=== PATIENT | male | born 1985 | race Asian ===

== ENCOUNTER 2017-07-23 00:32 | Inpatient (IN) | payer BC ==
--- NOTE | 2017-07-23 00:41 | PDOC ---
History of Present Illness - General Stated Complaint: VOMITING Time Seen by Provider: 07/23/17 00:40 - History of Present Illness Initial Comments: 31 year old male with history of inguinal abscesses (never requiring drainage) presenting with fevers, chills, nausea, vomiting, and pain in his left buttox for the past few days. His symptoms began with pain in his left buttocks three days ago. He was taking hot showers and cleaning himself regularly but that did not help bring this abscess to a head. He says that the skin is intact and there is no obvious source of drainage. 07/23/17 01:14 Past History - Past Medical History Allergies/Adverse Reactions: Allergies Allergy/AdvReac Type Severity Reaction Status Date / Time No Known Allergies Allergy Verified 07/23/17 00:46 Home Medications: Ambulatory Orders NK [No Known Home Medication] 10/07/15 - Suicide/Smoking/Psychosocial Hx Smoking Status: No Smoking History: Current every day smoker Number of Cigarettes Smoked Daily: 6 Hx Alcohol Use: No Drug/Substance Use Hx: No Review of Systems - Review of Systems Constitutional: Yes: Chills, Fever. No: Diaphoresis HEENTM: No: Blurred Vision, Tearing Respiratory: No: Cough, Shortness of Breath Cardiac (ROS): No: Chest Pain, Edema ABD/GI: Yes: Diarrhea, Nausea, Vomiting. No: Constipated : No: Dysuria, Discharge, Frequency Integumentary: Yes: Change in Color, Erythema, Lesions *Physical Exam - Physical Exam General Appearance: Yes: Nourished, Appropriately Dressed. No: Apparent Distress HEENT: positive: EOMI, EWA, Normal ENT Inspection Neck: negative: Tender ED Treatment Course - LABORATORY CBC & Chemistry Diagram: 07/23/17 01:47 07/23/17 01:47 Medical Decision Making - Medical Decision Making 31 year old male presenting with left gluteal lesion, nausea, vomiting, and fevers. Patient presented tachy, febrile, and with a sugar of 435. CT did not reveal any fluid collection in the gluteal region of concern. Will admit patient for cellulites and hyperglycemia treatment. Patient given 5 insulin and 1 L NS with drop of sugar from 440 to 335. Patient asymptomatic. Will get Ekg, UA, serum acetone, additional L NS, Blood cultures, and will give one dose clindamycin IV. 07/23/17 05:58 *DC/Admit/Observation/Transfer Diagnosis at time of Disposition: Diabetes, Cellulitis - Discharge Dispostion Condition at time of disposition: Improved Admit: Yes
--- NOTE | 2017-07-23 01:56 | PDOC ---
Attending Attestation - Resident Resident Name: Ernestina Ruiz - ED Attending Attestation I have performed the following: I have examined & evaluated the patient, The case was reviewed & discussed with the resident, I agree w/resident's findings & plan, Exceptions are as noted - HPI HPI: 07/23/17 01:52 31 M with no PMH presents to ER with pain and swelling to his perineal region. Pt reports h/o abscesses in the past that have resolved with warm compresses. He states that he has had subjective fevers and chills but has not measured any temps. Denies any pain in his scrotum. Denies pain on defecation. - Physicial Exam PE: 07/23/17 01:54 "GENERAL: Awake, alert, and fully oriented, in no acute distress HEAD: No signs of trauma EYES: PERRLA, EOMI, sclera anicteric, conjunctiva clear ENT: Auricles normal inspection, hearing grossly normal, nares patent, oropharynx clear without exudates. Moist mucosa NECK: Nontender, no stepoffs, Normal ROM, supple, no lymphadenopathy, JVD, or masses LUNGS: Breath sounds equal, clear to auscultation bilaterally. No wheezes, and no crackles HEART: Regular rate and rhythm, normal S1 and S2, no murmurs, rubs or gallops ABDOMEN: Soft, nontender, normoactive bowel sounds. No guarding, no rebound. No masses : Erythema and induration to R gluteal fold and perineal region, no drainage, no fluctuance, no obvious involvement of scrotum EXTREMITIES: Normal range of motion, no edema. No clubbing or cyanosis. No cords, erythema, or tenderness NEUROLOGICAL: Cranial nerves II through XII intact. 5/5 strength and sensation in all extremities, Normal speech, normal gait SKIN: Warm, Dry, normal turgor, no rashes or lesions noted. " - Medical Decision Making 07/23/17 01:55 31 M with cellulitis of perineum and likely early abscess. Bedside US does not reveal any drainable pockets of pus. Pt does not have any scrotal pain, and infection does not extend to scrotum, making roslyn's unlikely. - CT pelvis w/ IV contrast to r/o perirectal abscess - Labs - Abx
[2017-07-23 02:06] LABS: BASOPHIL 0.7 % (0-2.0); EOSINOPHIL 0.4 % (0-4.5); MCHC 34.7 g/dl (32.0-35.9); MEAN CELL VOLUME 83.5 fl (80-96); MEAN PLT VOLUME 9.6 fl (7.5-11.1); NEUTROPHILS 77.7 % (42.8-82.8); PLATELET COUNT 208 K/MM3 (134-434); RDW 12.5 % (11.9-15.9); WHITE BLOOD COUNT 16.3 K/mm3 (4.0-10.0)
[2017-07-23 02:33] LABS: ALBUMIN 3.7 g/dl (3.4-5.0); ALK PHOS 88 U/L (45-117); ANION GAP 12 (8-16); BILIRUBIN,TOTAL 0.8 mg/dL (0.2-1.0); CALCIUM 8.3 mg/dL (8.5-10.1); CO2 25 mmol/L (21-32); CREATININE 1.1 mg/dL (0.7-1.3); TOT PROT 7.2 g/dl (6.4-8.2)
[2017-07-23 02:34] LABS: SGOT/AST 20 U/L (15-37); SGPT/ALT 49 U/L (12-78)
[2017-07-23 02:36] LABS: GLUCOSE,RANDOM 445 mg/dL (74-106)
[2017-07-23] MEDS ORDERED: SODIUM CHLORIDE 1,000 ML IV STA ×2 (02:38→06:54)
[2017-07-23] MEDS ORDERED: POTASSIUM CHLORIDE TABS 20 MEQ TABLET.ER (FP) PO ONE ×2 (02:42→04:28)
[2017-07-23] MEDS ORDERED: INSULIN REGULAR HUMAN 100 UNITS/ML *VIAL IVPUSH ONE (02:42)
[2017-07-23] MEDS ORDERED: CLINDAMYCIN 600MG PREMIX IVPB 50 ML IVPB ONE ×2 (05:50→06:47)
[2017-07-23] MEDS ORDERED: SODIUM CHLORIDE 1,000 ML IV SCH (06:00)
--- NOTE | 2017-07-23 06:54 | HP ---
CHIEF COMPLAINT: left buttock abscess PCP: In [place] HISTORY OF PRESENT ILLNESS: This is a 31 year old male with no significant past medical history who presented to the ED with nausea, vomiting, fever, chills since last night and left buttock pain x 3 days. Pt reports that over the course of the past year he has been periodically getting "bumps" in his groin area that resolve with warm compresses. He attempted same to his buttock without relief. He denies any history of DM or elevated blood glucose but reports that he has been "stress eating." ER course was notable for: (1) glucose 445 (2) CRP 4.9 (3) CT with cellulitis, no free air Recent Travel: pt denies PAST MEDICAL HISTORY: asthma as a child PAST SURGICAL HISTORY: cyst removed from back as a child Social History: Smokin/4ppd Alcohol: occ Drugs: pt denies Family History: mother alive and well father with HTN uncles and aunts both sides with DM brother alive and well Allergies No Known Allergies Allergy (Verified 07/23/17 00:46) HOME MEDICATIONS: 3 Medication Instructions Recorded NK [No Known Home Medication] 10/07/15 REVIEW OF SYSTEMS CONSTITUTIONAL: Present: fever, chills Absent: diaphoresis, generalized weakness, malaise, loss of appetite, weight change HEENT: Absent: rhinorrhea, nasal congestion, throat pain, throat swelling, difficulty swallowing, mouth swelling, ear pain, eye pain, visual changes CARDIOVASCULAR: Absent: chest pain, syncope, palpitations, irregular heart rate, lightheadedness , peripheral edema RESPIRATORY: Absent: cough, shortness of breath, dyspnea with exertion, orthopnea, wheezing, stridor, hemoptysis GASTROINTESTINAL: Present: nausea, vomiting Absent: abdominal pain, abdominal distension, diarrhea, constipation, melena, hematochezia GENITOURINARY: Absent: dysuria, frequency, urgency, hesitancy, hematuria, flank pain, genital pain MUSCULOSKELETAL: Absent: myalgia, arthralgia, joint swelling, back pain, neck pain SKIN: Absent: rash, itching, pallor HEMATOLOGIC/IMMUNOLOGIC: Absent: easy bleeding, easy bruising, lymphadenopathy, frequent infections ENDOCRINE: Absent: unexplained weight gain, unexplained weight loss, heat intolerance, cold intolerance NEUROLOGIC: Absent: headache, focal weakness or paresthesias, dizziness, unsteady gait, seizure, mental status changes, bladder or bowel incontinence PSYCHIATRIC: Absent: anxiety, depression, suicidal or homicidal ideation, hallucinations. PHYSICAL EXAMINATION Vital Signs - 24 hr 3 07/23/17 06:13 Pulse Rate [ 112 H Right Apical] Respiratory 18 Rate Blood Pressure 127/78 [Right Arm] O2 Sat by Pulse 98 Oximetry (%) GENERAL: Awake, alert, and fully oriented, in no acute distress. HEAD: Normal with no signs of trauma. EYES: Pupils equal, round and reactive to light, extraocular movements intact, sclera anicteric, conjunctiva clear. No lid lag. EARS, NOSE, THROAT: Ears normal, nares patent, oropharynx clear without exudates. Moist mucous membranes. NECK: Normal range of motion, supple without lymphadenopathy, JVD, or masses. LUNGS: Breath sounds equal, clear to auscultation bilaterally. No wheezes, and no crackles. No accessory muscle use. HEART: Regular rate and rhythm, normal S1 and S2 without murmur, rub or gallop. ABDOMEN: Soft, nontender, not distended, normoactive bowel sounds, no guarding, no rebound, no masses. No hepatomegaly or splenomegaly. MUSCULOSKELETAL: Normal range of motion at all joints. No bony deformities or tenderness. No CVA tenderness. UPPER EXTREMITIES: 2+ pulses, warm, well-perfused. No cyanosis. No clubbing. No peripheral edema. LOWER EXTREMITIES: 2+ pulses, warm, well-perfused. No calf tenderness. No peripheral edema. NEUROLOGICAL: Cranial nerves II-XII intact. Normal speech. Normal gait. PSYCHIATRIC: Cooperative. Good eye contact. Appropriate mood and affect. SKIN: Warm, dry, normal turgor, no rashes noted, normal capillary refill. Indurated, erythematous area left inner buttock/perianal area non fluctuant. Approx 7cm x 4cm Laboratory Results - last 24 hr 3 07/23/17 07/23/17 07/23/17 07/23/17 01:47 01:47 01:47 06:08 WBC 16.3 H D RBC 4.67 Hgb 13.6 Hct 39.0 MCV 83.5 MCH 29.0 MCHC 34.7 RDW 12.5 Plt Count 208 D MPV 9.6 Neutrophils % 77.7 D Lymphocytes % 14.0 D Monocytes % 7.2 Eosinophils % 0.4 Basophils % 0.7 Sodium 131 L Potassium 3.6 Chloride 94 L D Carbon Dioxide 25 Anion Gap 12 BUN 13 D Creatinine 1.1 D Creat Clearance w eGFR > 60 Random Glucose 445 H* D Lactic Acid 2.2 H* Calcium 8.3 L Total Bilirubin 0.8 D AST 20 D ALT 49 D Alkaline Phosphatase 88 D C-Reactive Protein 4.9 H Total Protein 7.2 Albumin 3.7 Lipase 202 ASSESSMENT/PLAN: 31yM with PMH asthma as a child presented to the ED with left buttock abscess. He is being admitted for further treatment. Buttock/perianal abscess with severe sepsis - clindamycin, levaquin, flagyl x 1 to cover for MRSA and gram negative - surgical consult - NS 1L bolus ordered then 125cc/hr Diabetes - new onset - novolog sliding scale for now - A1C ordered DVT PPX - age less than 50, fully ambulatory, defer heparin for now. FEN - NS @ 125cc/hr after bolus - BMP @ 9am - NPO for now until surgical consult Dispo: Pt currently requires inpatient management of his emergent condition. Visit type - Emergency Visit Emergency Visit: Yes ED Registration Date: 07/23/17 Care time: The patient presented to the Emergency Department on the above date and was hospitalized for further evaluation of their emergent condition. - New Patient This patient is new to me today: Yes Date on this admission: 07/23/17 - Critical Care Critical Care patient: No
[2017-07-23] MEDS ORDERED: INSULIN SLIDING SCALE (NOVOLOG) 1 VIAL SQ SCH ×3 (07:00→22:00)
[2017-07-23] MEDS: INSULIN SLIDING SCALE (NOVOLOG) 1 VIAL SQ SCH ×4 (07:01→17:44)
[2017-07-23] MEDS ORDERED: METRONIDAZOLE 500 MG PREMIXED 100 ML IVPB ONE (07:43)
[2017-07-23] MEDS ORDERED: LEVOFLOXACIN 500 MG IVPB 100 ML IVPB ONE (07:43)
--- NOTE | 2017-07-23 09:11 | EKG ---
Test Reason : Blood Pressure : / mmHG Vent. Rate : 112 BPM Atrial Rate : 112 BPM P-R Int : 150 ms QRS Dur : 090 ms QT Int : 328 ms P-R-T Axes : 053 028 025 degrees QTc Int : 447 ms SINUS TACHYCARDIA LEFT ATRIAL ENLARGEMENT Confirmed by KEVIN BRO MD ([id number]) on 07/23/2017 9:10:58 AM Referred By: Confirmed By:KEVIN BRO MD
--- NOTE | 2017-07-23 09:57 | CONSULT ---
- Consultation REQUESTING PROVIDER: Nii AVIAN KEEPER CONSULT REQUEST: We have been asked to surgically evaluate this patient for an ABSSSI of the left medial buttock PCP:Blanca Bales HISTORY OF PRESENT ILLNESS: Progressive pain and swelling of the left medial buttock; NOC PMHx: none known PSHx: none Home Medications Medication Instructions Recorded NK [No Known Home Medication] 10/07/15 Allergies Allergy/AdvReac Type Severity Reaction Status Date / Time No Known Allergies Allergy Verified 07/23/17 00:46 PHYSICAL EXAM: GENERAL: Awake, alert, and fully oriented, in no acute distress. HEAD: Normal with no signs of trauma. EYES:sclera anicteric, conjunctiva clear. NECK: Normal ROM, supple without lymphadenopathy, JVD, or masses. ABDOMEN: Soft, nontender, not distended, normoactive bowel sounds, no guarding, no rebound, no masses. No organomegaly. Striae. MUSCULOSKELETAL: Normal ROM at all joints. No bony deformities or tenderness. No CVA tenderness. UPPER EXTREMITIES: 2+ pulses, warm, well-perfused. No cyanosis. Cap refill <2 seconds. No peripheral edema. LOWER EXTREMITIES: 2+ pulses, warm, well-perfused. No calf tenderness. No peripheral edema. NEUROLOGICAL: Normal speech, gait not observed. PSYCH: Cooperative. Good eye contact. Appropriate mood and affect. SKIN: Warm, dry, normal turgor, no rashes or lesions noted. STS left medial upper buttock; no fluctuance; there is ttp. Vital Signs Temperature 99.4 F 07/23/17 09:19 Pulse Rate 100 H 07/23/17 09:19 Respiratory Rate 18 07/23/17 09:19 Blood Pressure 135/69 07/23/17 09:19 O2 Sat by Pulse Oximetry (%) 98 07/23/17 06:13 Lab Results WBC 16.3 K/mm3 (4.0-10.0) H D 07/23/17 01:47 RBC 4.67 M/mm3 (4.00-5.60) 07/23/17 01:47 Hgb 13.6 GM/dL (11.7-16.9) 07/23/17 01:47 Hct 39.0 % (35.4-49) 07/23/17 01:47 MCV 83.5 fl (80-96) 07/23/17 01:47 MCHC 34.7 g/dl (32.0-35.9) 07/23/17 01:47 RDW 12.5 % (11.9-15.9) 07/23/17 01:47 Plt Count 208 K/MM3 (134-434) D 07/23/17 01:47 Sodium 131 mmol/L (136-145) L 07/23/17 01:47 Potassium 3.6 mmol/L (3.5-5.1) 07/23/17 01:47 Chloride 94 mmol/L (98-107) L D 07/23/17 01:47 Carbon Dioxide 25 mmol/L (21-32) 07/23/17 01:47 Anion Gap 12 (8-16) 07/23/17 01:47 BUN 13 mg/dL (7-18) D 07/23/17 01:47 Creatinine 1.1 mg/dL (0.7-1.3) D 07/23/17 01:47 Random Glucose 445 mg/dL (74-106) H* D 07/23/17 01:47 Calcium 8.3 mg/dL (8.5-10.1) L 07/23/17 01:47 CT a/p reviewed IMP: ABSSSI of the left medial buttocks PLAN: IVAB's; at this time I and D is not indicated. Adelso Berkowitz MD FACS Visit type - Case Type Case Type: ED Admission - Emergency Emergency Visit: Yes ED Registration Date: 07/23/17 Care time: The patient presented to the Emergency Department on the above date and was hospitalized for further evaluation of their emergent condition. - New patient This patient is new to me today: Yes Date on this admission: 07/23/17 - Critical Care Critical Care patient: No
[2017-07-23] MEDS: oxyCODONE HCL 5 MG TABLET PO PRN ×3 (10:00→23:00)
[2017-07-23] MEDS ORDERED: LEVOFLOXACIN 500 MG IVPB 100 ML IVPB SCH (10:00)
[2017-07-23] MEDS: ACETAMINOPHEN 325 MG TABLET (FP) PO PRN ×2 (10:00→15:21)
[2017-07-23] MEDS: DOCUSATE SODIUM 100 MG CAPSULE (FP) PO SCH ×2 (10:03→22:40)
[2017-07-23] MEDS: METRONIDAZOLE 500 MG PREMIXED 100 ML IVPB SCH ×2 (10:07→17:24)
--- NOTE | 2017-07-23 12:08 | HOSP ---
Physical Examination Vital Signs: Vital Signs Temperature 99.4 F 07/23/17 09:19 Pulse Rate 100 H 07/23/17 09:19 Respiratory Rate 18 07/23/17 09:19 Blood Pressure 135/69 07/23/17 09:19 O2 Sat by Pulse Oximetry (%) 98 07/23/17 06:13 Constitutional: Yes: No Distress Eyes: Yes: Conjunctiva Clear Cardiovascular: Yes: Regular Rate and Rhythm, S1, S2 Respiratory: Yes: Regular, CTA Bilaterally Gastrointestinal: Yes: Soft, Abdomen, Obese Musculoskeletal: Yes: WNL Edema: No Integumentary: Yes: Other (L medial abscess, erythema, tender, fluctuant) Neurological: Yes: Alert, Oriented, Cran Nerves II-XII Intact Hospitalist Encounter Assessment: Assessment: 31 year old male with newly dx DM II admitted with left medial buttock abscess/cellulitis Plan: 1. Sepsis - Met sepsis criteria on admission - Now resolving 2. Left buttock cellulitis/abscess - D/w Surgery no I&D at this time - Continue levaquin/flagyl (Day 1) - Hot compress to area - Daily shower 3. DM II - Hgb a1c 11.1 - Endocrine consult for initial mgmt - ISS, BGM ACHS 4. DVT - Lovenox sq
[2017-07-23 16:00] VITALS: BMI 40.2
[2017-07-23] MEDS ORDERED: PNEUMOC 13-VAL CONJ-DIP CRM/PF 0.5 ML DISP.SYRIN IM ONE (16:01)
--- NOTE | 2017-07-23 16:21 | CONSULT ---
Consult Consult Specialty:: Endocrinology Referred by:: Leia Bales Reason for Consultation:: New Onset DM with hyperglycemia - History of Present Illness Chief Complaint: Pain left gluteal area History of Present Illness: This is a 31 year old man with no significant past medical history who presented to the ED with nausea, vomiting, fever, chills since last night and left buttock pain x 3 days. Pt reports that over the course of the past year he has been periodically getting "bumps" in his groin area that resolve with warm compresses. He attempted same to his buttock without relief. He denies any history of DM or elevated blood glucose but reports that he has been "stress eating." Has family h/o DM in grandparents. No polyuria, nocturia. Usually drinks a lot of water. No recent change in weight.No blurred vision. Admission blood glucose was 445 with CO2 of 25 and AGap of 12. - History Source History Provided By: Patient, Medical Record Limitations to Obtaining History: No Limitations - Alcohol/Substance Use Hx Alcohol Use: No - Smoking History Smoking history: Current every day smoker Have you smoked in the past 12 months: Yes Aproximately how many cigarettes per day: 3 Home Medications - Allergies Allergies/Adverse Reactions: Allergies Allergy/AdvReac Type Severity Reaction Status Date / Time No Known Allergies Allergy Verified 07/23/17 00:46 - Home Medications Home Medications: Ambulatory Orders NK [No Known Home Medication] 10/07/15 Family Disease History - Family Disease History Family Disease History: Diabetes: Grandparent Review of Systems - Review of Systems Constitutional: reports: Malaise Eyes: reports: No Symptoms HENT: reports: No Symptoms Neck: reports: No Symptoms Cardiovascular: reports: No Symptoms Respiratory: reports: No Symptoms Gastrointestinal: reports: No Symptoms Genitourinary: reports: No Symptoms Breasts: reports: No Symptoms Reported Musculoskeletal: reports: No Symptoms Integumentary: reports: Erythema (left gluteal fold) Neurological: reports: No Symptoms Endocrine: reports: No Symptoms Hematology/Lymphatic: reports: No Symptoms Physical Exam Vital Signs: Vital Signs Temperature 97.9 F 07/23/17 14:39 Pulse Rate 98 H 07/23/17 14:39 Respiratory Rate 20 07/23/17 14:39 Blood Pressure 135/85 07/23/17 14:39 O2 Sat by Pulse Oximetry (%) 100 07/23/17 10:00 Constitutional: Yes: No Distress, Calm Eyes: Yes: Conjunctiva Clear, EOM Intact HENT: Yes: Atraumatic, Normocephalic Neck: Yes: Supple, Trachea Midline Cardiovascular: Yes: Regular Rate and Rhythm Respiratory: Yes: Regular, CTA Bilaterally Gastrointestinal: Yes: Normal Bowel Sounds Breast(s): Yes: WNL Musculoskeletal: Yes: WNL Extremities: Yes: WNL Edema: No Integumentary: Yes: Erythema, Other (erythema, swelling and tenderness over left gluteal area near the midline) Imaging - Results Cat Scan: Report Reviewed Problem List - Problems (1) Cellulitis Code(s): L03.90 - CELLULITIS, UNSPECIFIED (2) Diabetes Code(s): E11.9 - TYPE 2 DIABETES MELLITUS WITHOUT COMPLICATIONS Assessment/Plan AP; Cellulitis left buttock New Onset DM: A1c 11.1 Abx as per ID/Primary Surgery consult noted BGM QACHS Nutrition consult Levemir 12 units daily at Novolog SS coverage Will F/U
[2017-07-23] MEDS ORDERED: PNEUMOCOCCAL 23 VACCINE 0.5 ML VIAL IM ONE (17:00)
[2017-07-23] MEDS ORDERED: INSULIN (NOVOLOG) ASPART 100 UNITS/ML 10ML VIAL ONE (20:04)
[2017-07-23] MEDS ORDERED: INSULIN DETEMIR 100 UNITS/ML MDV SQ SCH (22:00)
[2017-07-24] MEDS: METRONIDAZOLE 500 MG PREMIXED 100 ML IVPB SCH (01:35)
[2017-07-24] MEDS: INSULIN SLIDING SCALE (NOVOLOG) 1 VIAL SQ SCH ×4 (06:15→21:32)
[2017-07-24 07:01] LABS: BASOPHIL 0.7 % (0-2.0); EOSINOPHIL 1.3 % (0-4.5); MCH 28.4 pg (25.7-33.7); MCHC 33.9 g/dl (32.0-35.9); MEAN CELL VOLUME 83.7 fl (80-96); MEAN PLT VOLUME 9.3 fl (7.5-11.1); NEUTROPHILS 67.3 % (42.8-82.8); PLATELET COUNT 179 K/MM3 (134-434); RDW 12.5 % (11.9-15.9); WHITE BLOOD COUNT 9.4 K/mm3 (4.0-10.0)
[2017-07-24 07:33] LABS: ANION GAP 8 (8-16); CALCIUM 8.3 mg/dL (8.5-10.1); CO2 27 mmol/L (21-32); GLUCOSE,RANDOM 234 mg/dL (74-106); MAGNESIUM 1.9 mg/dL (1.8-2.4)
[2017-07-24 07:34] LABS: CREATININE 0.8 mg/dL (0.7-1.3); PHOSPHOROUS 3.1 mg/dL (2.5-4.9)
[2017-07-24] MEDS: oxyCODONE HCL 5 MG TABLET PO PRN ×3 (08:58→21:28)
[2017-07-24] MEDS: ACETAMINOPHEN 325 MG TABLET (FP) PO PRN ×3 (08:59→21:28)
[2017-07-24] MEDS ORDERED: PT OWN MED DRAWER 7, Y5N ONE (09:57)
[2017-07-24] MEDS: AMPICILLIN NA/SULBACTAM NA 3 GM in SODIUM CHLORIDE 100 ML IVPB SCH ×2 (10:14→17:06)
[2017-07-24] MEDS: CLINDAMYCIN 300 MG PREMIX IVPB 50 ML IVPB SCH ×2 (10:14→17:06)
[2017-07-24] MEDS: ENOXAPARIN NA (PORCINE) 40 MG/0.4 ML DISP.SYRIN SQ SCH (10:15)
[2017-07-24] MEDS: DOCUSATE SODIUM 100 MG CAPSULE (FP) PO SCH ×2 (10:15→21:29)
--- NOTE | 2017-07-24 11:08 | PN ---
Progress Note (short form) - Note Progress Note: Attending Surgeon No new c/o; ?? better VSS AF area of the left medial buttock remains indurated but not fluctuant; ttp WBC-nl IMP:ABSSSI left medial bottocks/perineum PLAN: Continue present tx; will f/u. Adelso Berkowitz MD FACS
[2017-07-24] MEDS ORDERED: INSULIN SLIDING SCALE (NOVOLOG) 1 VIAL SQ SCH (11:30)
--- NOTE | 2017-07-24 11:52 | PN ---
Progress Note (short form) - Note Progress Note: Feels better No new complaints BGM 200s No hypos Vital Signs Period Temp Pulse Resp BP Sys/Schuler Pulse Ox Last 24 Hr 97.9 F-98.9 F 95-100 20-20 135-145/77-86 100 PE: AOx3 Neck: Supple, No JVD HEENT: PERRL, EOMI Lungs: CTA CVS: S1S2 Abd: Benign Ext: No edema Neuro: No focal deficit CMP Sodium 136 mmol/L (136-145) 07/24/17 06:05 Potassium 4.1 mmol/L (3.5-5.1) 07/24/17 06:05 Chloride 101 mmol/L (98-107) 07/24/17 06:05 Carbon Dioxide 27 mmol/L (21-32) 07/24/17 06:05 Anion Gap 8 (8-16) 07/24/17 06:05 BUN 10 mg/dL (7-18) D 07/24/17 06:05 Creatinine 0.8 mg/dL (0.7-1.3) D 07/24/17 06:05 Creat Clearance w eGFR > 60 (>60) 07/23/17 01:47 POC Glucometer 295 UNITS (()) 07/24/17 11:14 Random Glucose 234 mg/dL (74-106) H D 07/24/17 06:05 Hemoglobin A1c % 11.1 % (4.8-6.0) H 07/23/17 10:46 Lactic Acid 1.4 mmol/L (0.4-2.0) 07/23/17 10:46 Calcium 8.3 mg/dL (8.5-10.1) L 07/24/17 06:05 Phosphorus 3.1 mg/dL (2.5-4.9) 07/24/17 06:05 Magnesium 1.9 mg/dL (1.8-2.4) 07/24/17 06:05 Total Bilirubin 0.8 mg/dL (0.2-1.0) D 07/23/17 01:47 AST 20 U/L (15-37) D 07/23/17 01:47 ALT 49 U/L (12-78) D 07/23/17 01:47 Alkaline Phosphatase 88 U/L (45-117) D 07/23/17 01:47 C-Reactive Protein 4.9 MG/DL (0.00-0.3) H 07/23/17 01:47 Total Protein 7.2 g/dl (6.4-8.2) 07/23/17 01:47 Albumin 3.7 g/dl (3.4-5.0) 07/23/17 01:47 Lipase 202 U/L (73-393) 07/23/17 01:47 Current Medications Generic Name Dose Route Start Last Admin Trade Name Freq PRN Reason Stop Dose Admin Acetaminophen 650 mg 07/23/17 09:44 07/24/17 08:59 Tylenol - PO 650 mg Q4H PRN Administration FEVER OR PAIN Docusate Sodium 100 mg 07/23/17 10:00 07/24/17 10:15 Colace - PO 100 mg BID RAMONA Administration Enoxaparin Sodium 40 mg 07/24/17 10:00 07/24/17 10:15 Lovenox - SQ 40 mg DAILY RAMONA Administration Ampicillin Sodium/Sulbactam 100 mls @ 200 mls/hr 07/24/17 10:00 07/24/17 10:14 Sodium 3 gm/ Sodium Chloride IVPB 200 mls/hr Q8H-IV RAMONA Administration Clindamycin Phosphate 50 mls @ 100 mls/hr 07/24/17 10:00 07/24/17 10:14 Cleocin 300 Mg Premix Ivpb IVPB 100 mls/hr Q8H-IV RAMONA Administration Insulin Aspart 1 vial 07/23/17 16:30 07/24/17 11:34 Novolog Vial Sliding Scale - SQ 8 unit TIDAC RAMONA Administration Protocol Insulin Aspart 1 vial 07/24/17 11:30 Novolog Vial Sliding Scale - SQ HS [facility] Protocol Insulin Detemir 12 units 07/23/17 22:00 07/23/17 22:41 Levemir Vial SQ 12 units HS RAMONA Administration Oxycodone HCl 5 mg 07/23/17 09:44 07/24/17 08:58 Roxicodone - PO 5 mg Q4H PRN Administration PAIN AP: Cellulitis/Abscess left buttock New Onset DM: A1c 11.1 Abx as per ID/Primary BGM QACHS Nutrition consult Increase Levemir 18 units daily at HS Increase Novolog SS coverage by 4 units premeals Will F/U Problem List - Problems (1) Cellulitis Code(s): L03.90 - CELLULITIS, UNSPECIFIED (2) Diabetes Code(s): E11.9 - TYPE 2 DIABETES MELLITUS WITHOUT COMPLICATIONS
[2017-07-24 17:15] LABS: URINE APPEARANCE CLEAR; URINE BILIRUBIN NEGATIVE (NEGATIVE); URINE BLOOD NEGATIVE (NEGATIVE); URINE COLOR YELLOW; URINE GLUCOSE (UA) 3+ (NEGATIVE); URINE KETONE TRACE (NEGATIVE); URINE LEUK ESTERASE NEGATIVE (NEGATIVE); URINE NITRITE NEGATIVE (NEGATIVE); URINE UROBILINOGEN 4.0 E.U/dl mg/dL (0.2-1.0)
[2017-07-24 17:22] LABS: URINE PROTEIN 2+ (NEGATIVE)
[2017-07-24 17:26] LABS: URINE RBC <1 /hpf (0-3); URINE WBC 1 /hpf (3-5)
--- NOTE | 2017-07-24 18:19 | PN ---
Physical Exam: SUBJECTIVE: Patient seen and examined at the bedside. States he feels well. States Oxycodone relieves pain. OBJECTIVE: Vital Signs Period Temp Pulse Resp BP Sys/Schuler Pulse Ox Last 24 Hr 98 F-98.9 F 95-105 18-20 133-145/65-85 100-100 GENERAL: The patient is awake, alert, and fully oriented, in no acute distress. HEAD: Normal with no signs of trauma. EYES: PERRL, extraocular movements intact, sclera anicteric, conjunctiva clear. No ptosis. ENT: Ears normal, nares patent, oropharynx clear without exudates, moist mucous membranes. NECK: Trachea midline, full range of motion, supple. LUNGS: Breath sounds equal, clear to auscultation bilaterally, no wheezes, no crackles, no accessory muscle use. HEART: Regular rate and rhythm, S1, S2 without murmur, rub or gallop. ABDOMEN: Soft, nontender, nondistended, normoactive bowel sounds, no guarding, no rebound, no hepatosplenomegaly, no masses. EXTREMITIES: 2+ pulses, warm, well-perfused, no edema. NEUROLOGICAL: Cranial nerves II through XII grossly intact. Normal speech, gait not observed. PSYCH: Normal mood, normal affect. SKIN: Left lower buttocks abcesss + pain Laboratory Results - last 24 hr 07/23/17 07/24/17 07/24/17 22:39 06:05 06:05 WBC 9.4 D RBC 4.41 Hgb 12.5 Hct 36.9 MCV 83.7 MCH 28.4 MCHC 33.9 RDW 12.5 Plt Count 179 MPV 9.3 Neutrophils % 67.3 Lymphocytes % 24.0 D Monocytes % 6.7 Eosinophils % 1.3 D Basophils % 0.7 Sodium 136 Potassium 4.1 Chloride 101 Carbon Dioxide 27 Anion Gap 8 BUN 10 D Creatinine 0.8 D POC Glucometer 257 Random Glucose 234 H D Calcium 8.3 L Phosphorus 3.1 Magnesium 1.9 Urine Color Urine Appearance Urine pH Urine Protein Urine Glucose (UA) Urine Ketones Urine Blood Urine Nitrite Urine Bilirubin Urine Urobilinogen Urine RBC Urine WBC 07/24/17 07/24/17 07/24/17 06:11 11:14 15:20 WBC RBC Hgb Hct MCV MCH MCHC RDW Plt Count MPV Neutrophils % Lymphocytes % Monocytes % Eosinophils % Basophils % Sodium Potassium Chloride Carbon Dioxide Anion Gap BUN Creatinine POC Glucometer 229 295 Random Glucose Calcium Phosphorus Magnesium Urine Color Yellow Urine Appearance Clear Urine pH 6.0 Urine Protein 2+ H Urine Glucose (UA) 3+ H Urine Ketones Trace H Urine Blood Negative Urine Nitrite Negative Urine Bilirubin Negative Urine Urobilinogen 4.0 e.u/dl Urine RBC <1 Urine WBC 1 07/24/17 16:47 WBC RBC Hgb Hct MCV MCH MCHC RDW Plt Count MPV Neutrophils % Lymphocytes % Monocytes % Eosinophils % Basophils % Sodium Potassium Chloride Carbon Dioxide Anion Gap BUN Creatinine POC Glucometer 244 Random Glucose Calcium Phosphorus Magnesium Urine Color Urine Appearance Urine pH Urine Protein Urine Glucose (UA) Urine Ketones Urine Blood Urine Nitrite Urine Bilirubin Urine Urobilinogen Urine RBC Urine WBC Active Medications Generic Name Dose Route Start Last Admin Trade Name Freq PRN Reason Stop Dose Admin Acetaminophen 650 mg 07/23/17 09:44 07/24/17 14:53 Tylenol - PO 650 mg Q4H PRN Administration FEVER OR PAIN Docusate Sodium 100 mg 07/23/17 10:00 07/24/17 10:15 Colace - PO 100 mg BID RAMONA Administration Enoxaparin Sodium 40 mg 07/24/17 10:00 07/24/17 10:15 Lovenox - SQ 40 mg DAILY RAMONA Administration Ampicillin Sodium/Sulbactam 100 mls @ 200 mls/hr 07/24/17 10:00 07/24/17 17:06 Sodium 3 gm/ Sodium Chloride IVPB 200 mls/hr Q8H-IV RAMONA Administration Clindamycin Phosphate 50 mls @ 100 mls/hr 07/24/17 10:00 07/24/17 17:06 Cleocin 300 Mg Premix Ivpb IVPB 100 mls/hr Q8H-IV RAMONA Administration Insulin Aspart 1 vial 07/24/17 11:56 07/24/17 17:07 Novolog Vial Sliding Scale - SQ 10 units TIDAC RAMONA Administration Protocol Insulin Aspart 1 vial 07/24/17 22:00 Novolog Vial Sliding Scale - SQ HS [facility] Protocol Insulin Detemir 18 units 07/24/17 22:00 Levemir Vial SQ [facility] Oxycodone HCl 5 mg 07/23/17 09:44 07/24/17 14:53 Roxicodone - PO 5 mg Q4H PRN Administration PAIN ASSESSMENT/PLAN: Patient is a 31 year old male with no significant past medical history, other than childhood asthma, presented to the ER on 07/23/2017 with nausea, vomiting, fever, chills and left buttock pain x 3 days . Patient states that he was periodically getting "bumps" in his grown area that resolved previously with warm compresses. He attempted to treat this left buttock discomfort with warm compresses but without any relief. He denies any prior history of diabetes or hyperglycemia in the past. His blood glucose in the ED was 445. He was admitted on 07/23/2017 with newly diagnosed diabetes mellitus and left medial buttock abscess/cellulitis. Imaging: CT abd/pelvis 07/23/2017 - Subcutanous fat haziness at the infermedial left buttocks which likely reflects cellulitis, no abscess is seen. ID: Sepsis on admission, now improving - acute A/P: Secondary to left medial buttock abscess/cellulitis. 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 Fluids: Tolerates PO Electrolytes: monitor Nutrition: diabetic diet Visit type - Emergency Visit Emergency Visit: Yes ED Registration Date: 07/23/17 Care time: The patient presented to the Emergency Department on the above date and was hospitalized for further evaluation of their emergent condition. - New Patient This patient is new to me today: Yes Date on this admission: 07/25/17 - Critical Care Critical Care patient: No - Discharge Referral [facility]erred to [facility] Med P.C.: No
[2017-07-24] MEDS ORDERED: INSULIN (NOVOLOG) ASPART 100 UNITS/ML 10ML VIAL ONE (20:35)
[2017-07-24] MEDS ORDERED: INSULIN DETEMIR 100 UNITS/ML MDV SQ SCH (22:00)
[2017-07-25] MEDS ORDERED: PT OWN MED DRAWER 7, Y5N ONE (01:33)
[2017-07-25] MEDS: ACETAMINOPHEN 325 MG TABLET (FP) PO PRN ×4 (01:48→20:04)
[2017-07-25] MEDS: AMPICILLIN NA/SULBACTAM NA 3 GM in SODIUM CHLORIDE 100 ML IVPB SCH ×2 (01:48→10:06)
[2017-07-25] MEDS: oxyCODONE HCL 5 MG TABLET PO PRN ×4 (01:48→20:04)
[2017-07-25] MEDS: CLINDAMYCIN 300 MG PREMIX IVPB 50 ML IVPB SCH ×2 (01:48→10:52)
[2017-07-25 06:59] LABS: BASOPHIL 0.4 % (0-2.0); EOSINOPHIL 2.6 % (0-4.5); MCHC 33.7 g/dl (32.0-35.9); MEAN CELL VOLUME 83.1 fl (80-96); MEAN PLT VOLUME 9.2 fl (7.5-11.1); NEUTROPHILS 63.8 % (42.8-82.8); PLATELET COUNT 204 K/MM3 (134-434); RDW 12.6 % (11.9-15.9); WHITE BLOOD COUNT 8.1 K/mm3 (4.0-10.0)
[2017-07-25] MEDS: INSULIN SLIDING SCALE (NOVOLOG) 1 VIAL SQ SCH ×4 (07:09→22:29)
[2017-07-25 07:17] LABS: ALBUMIN 3.6 g/dl (3.4-5.0); ANION GAP 8 (8-16); CALCIUM 8.4 mg/dL (8.5-10.1); CO2 28 mmol/L (21-32); CREATININE 0.8 mg/dL (0.7-1.3); GLUCOSE,RANDOM 197 mg/dL (74-106); SGOT/AST 23 U/L (15-37); SGPT/ALT 36 U/L (12-78)
[2017-07-25 07:19] LABS: ALK PHOS 76 U/L (45-117); BILIRUBIN,TOTAL 1.1 mg/dL (0.2-1.0)
[2017-07-25] MEDS: ENOXAPARIN NA (PORCINE) 40 MG/0.4 ML DISP.SYRIN SQ SCH (10:05)
[2017-07-25] MEDS: DOCUSATE SODIUM 100 MG CAPSULE (FP) PO SCH ×3 (10:05→22:24)
--- NOTE | 2017-07-25 11:10 | PN ---
Physical Exam: SUBJECTIVE: Patient seen and examined, states he is still having pain on his left lower buttocks. OBJECTIVE: Will order soft tissue u/s to further evaluate abscess/no obvious source of drainage. No fevers, WBC stable, will consult ID for further antibiotic therapy as patient is still having minimal improvements of this symptoms. * Placed a call to the pharmacy and ak them to mix all the antibiotics with normal saline and not D5 as patient's blood sugars are still in the 200s range Vital Signs Period Temp Pulse Resp BP Sys/Schuler Pulse Ox Last 24 Hr 98.4 F-99.1 F 88-105 18-20 133-144/65-96 100 GENERAL: The patient is awake, alert, and fully oriented, in no acute distress. HEAD: Normal with no signs of trauma. EYES: PERRL, extraocular movements intact, sclera anicteric, conjunctiva clear. No ptosis. ENT: Ears normal, nares patent, oropharynx clear without exudates, moist mucous membranes. NECK: Trachea midline, full range of motion, supple. ABDOMEN: Soft, nontender, nondistended, normoactive bowel sounds, no guarding, no rebound, no hepatosplenomegaly, no masses. EXTREMITIES: 2+ pulses, warm, well-perfused, no edema. NEUROLOGICAL: Cranial nerves II through XII grossly intact. Normal speech, gait not observed. PSYCH: Normal mood, normal affect. SKIN: Left lower buttocks abcesss + pain, no drainage Laboratory Results - last 24 hr 07/24/17 07/24/17 07/24/17 11:14 15:20 16:47 WBC RBC Hgb Hct MCV MCH MCHC RDW Plt Count MPV Neutrophils % Lymphocytes % Monocytes % Eosinophils % Basophils % Sodium Potassium Chloride Carbon Dioxide Anion Gap BUN Creatinine Creat Clearance w eGFR POC Glucometer 295 244 Random Glucose Calcium Total Bilirubin AST ALT Alkaline Phosphatase Total Protein Albumin Urine Color Yellow Urine Appearance Clear Urine pH 6.0 Ur Specific Coulters 1.020 Urine Protein 2+ H Urine Glucose (UA) 3+ H Urine Ketones Trace H Urine Blood Negative Urine Nitrite Negative Urine Bilirubin Negative Urine Urobilinogen 4.0 e.u/dl Urine RBC <1 Urine WBC 1 07/24/17 07/25/17 07/25/17 21:31 06:05 06:05 WBC 8.1 RBC 4.51 Hgb 12.6 Hct 37.5 MCV 83.1 MCH 28.0 MCHC 33.7 RDW 12.6 Plt Count 204 MPV 9.2 Neutrophils % 63.8 Lymphocytes % 25.9 Monocytes % 7.3 Eosinophils % 2.6 D Basophils % 0.4 Sodium 137 Potassium 3.9 Chloride 101 Carbon Dioxide 28 Anion Gap 8 BUN 10 Creatinine 0.8 Creat Clearance w eGFR > 60 POC Glucometer 232 Random Glucose 197 H Calcium 8.4 L Total Bilirubin 1.1 H D AST 23 ALT 36 D Alkaline Phosphatase 76 Total Protein 7.0 Albumin 3.6 Urine Color Urine Appearance Urine pH Ur Specific Coulters Urine Protein Urine Glucose (UA) Urine Ketones Urine Blood Urine Nitrite Urine Bilirubin Urine Urobilinogen Urine RBC Urine WBC 07/25/17 07:08 WBC RBC Hgb Hct MCV MCH MCHC RDW Plt Count MPV Neutrophils % Lymphocytes % Monocytes % Eosinophils % Basophils % Sodium Potassium Chloride Carbon Dioxide Anion Gap BUN Creatinine Creat Clearance w eGFR POC Glucometer 220 Random Glucose Calcium Total Bilirubin AST ALT Alkaline Phosphatase Total Protein Albumin Urine Color Urine Appearance Urine pH Ur Specific Coulters Urine Protein Urine Glucose (UA) Urine Ketones Urine Blood Urine Nitrite Urine Bilirubin Urine Urobilinogen Urine RBC Urine WBC Active Medications Generic Name Dose Route Start Last Admin Trade Name Freq PRN Reason Stop Dose Admin Acetaminophen 650 mg 07/23/17 09:44 07/25/17 07:13 Tylenol - PO 650 mg Q4H PRN Administration FEVER OR PAIN Docusate Sodium 100 mg 07/23/17 10:00 07/25/17 10:05 Colace - PO 100 mg BID ARMONA Administration Enoxaparin Sodium 40 mg 07/24/17 10:00 07/25/17 10:05 Lovenox - SQ 40 mg DAILY RAMONA Administration Ampicillin Sodium/Sulbactam 100 mls @ 200 mls/hr 07/24/17 10:00 07/25/17 10:06 Sodium 3 gm/ Sodium Chloride IVPB 200 mls/hr Q8H-IV RAMONA Administration Clindamycin Phosphate 50 mls @ 100 mls/hr 07/24/17 10:00 07/25/17 10:52 Cleocin 300 Mg Premix Ivpb IVPB 100 mls/hr Q8H-IV RAMONA Administration Insulin Aspart 1 vial 07/24/17 11:56 07/25/17 07:09 Novolog Vial Sliding Scale - SQ 8 units TIDAC RAMONA Administration Protocol Insulin Aspart 1 vial 07/24/17 22:00 07/24/17 21:32 Novolog Vial Sliding Scale - SQ 4 units HS RAMONA Administration Protocol Insulin Detemir 18 units 07/24/17 22:00 07/24/17 21:29 Levemir Vial SQ 18 units HS RAMONA Administration Oxycodone HCl 5 mg 07/23/17 09:44 07/25/17 07:13 Roxicodone - PO 5 mg Q4H PRN Administration PAIN ASSESSMENT/PLAN: Patient is a 31 year old male with no significant past medical history, other than childhood asthma, presented to the ER on 07/23/2017 with nausea, vomiting, fever, chills and left buttock pain x 3 days . Patient states that he was periodically getting "bumps" in his grown area that resolved previously with warm compresses. He attempted to treat this left buttock discomfort with warm compresses but without any relief. He denies any prior history of diabetes or hyperglycemia in the past. His blood glucose in the ED was 445. He was admitted on 07/23/2017 with newly diagnosed diabetes mellitus and left medial buttock abscess/cellulitis. Imaging: CT abd/pelvis 07/23/2017 - Subcutanous fat haziness at the infermedial left buttocks which likely reflects cellulitis, no abscess is seen. Ultrasound of left lower buttocks 07/25/2017 r/o abscess: pending read ID: Severe sepsis on admission, now resolving A/P: Secondary to left medial buttock abscess/cellulitis. 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 Fluids: Tolerates PO Electrolytes: monitor Nutrition: diabetic diet ongoing teaching on carbohydrate counts by RD Disposition. Full code. Visit type - Emergency Visit Emergency Visit: Yes ED Registration Date: 07/23/17 Care time: The patient presented to the Emergency Department on the above date and was hospitalized for further evaluation of their emergent condition. - New Patient This patient is new to me today: No - Critical Care Critical Care patient: No - Discharge Referral Referred to [facility] Med P.C.: No
[2017-07-25] MEDS ORDERED: BACITRACIN 15 GM TUBE TOPICAL OINTMENT TP SCH (11:30)
[2017-07-25] MEDS ORDERED: INSULIN (NOVOLOG) ASPART 100 UNITS/ML 10ML VIAL ONE ×3 (11:49→22:19)
--- NOTE | 2017-07-25 12:42 | PN ---
Progress Note (short form) - Note Progress Note: Blood sugar improving but sitll >200 No hypos C/O pain in the gluteal region TMax 99.1 Vital Signs Period Temp Pulse Resp BP Sys/Schuler Pulse Ox Last 24 Hr 97.6 F-99.1 F 88-105 18-20 130-144/58-96 100-100 PE: AOx3 Neck: Supple, No JVD HEENT: PERRL, EOMI Lungs: CTA CVS: S1S2 Abd: Benign Ext: No edema Neuro: No focal deficit CBCD WBC 8.1 K/mm3 (4.0-10.0) 07/25/17 06:05 RBC 4.51 M/mm3 (4.00-5.60) 07/25/17 06:05 Hgb 12.6 GM/dL (11.7-16.9) 07/25/17 06:05 Hct 37.5 % (35.4-49) 07/25/17 06:05 MCV 83.1 fl (80-96) 07/25/17 06:05 MCHC 33.7 g/dl (32.0-35.9) 07/25/17 06:05 RDW 12.6 % (11.9-15.9) 07/25/17 06:05 Plt Count 204 K/MM3 (134-434) 07/25/17 06:05 MPV 9.2 fl (7.5-11.1) 07/25/17 06:05 CMP Sodium 137 mmol/L (136-145) 07/25/17 06:05 Potassium 3.9 mmol/L (3.5-5.1) 07/25/17 06:05 Chloride 101 mmol/L (98-107) 07/25/17 06:05 Carbon Dioxide 28 mmol/L (21-32) 07/25/17 06:05 Anion Gap 8 (8-16) 07/25/17 06:05 BUN 10 mg/dL (7-18) 07/25/17 06:05 Creatinine 0.8 mg/dL (0.7-1.3) 07/25/17 06:05 Creat Clearance w eGFR > 60 (>60) 07/25/17 06:05 Calcium 8.4 mg/dL (8.5-10.1) L 07/25/17 06:05 Total Bilirubin 1.1 mg/dL (0.2-1.0) H D 07/25/17 06:05 AST 23 U/L (15-37) 07/25/17 06:05 ALT 36 U/L (12-78) D 07/25/17 06:05 Alkaline Phosphatase 76 U/L (45-117) 07/25/17 06:05 Total Protein 7.0 g/dl (6.4-8.2) 07/25/17 06:05 Albumin 3.6 g/dl (3.4-5.0) 07/25/17 06:05 Current Medications Generic Name Dose Route Start Last Admin Trade Name Freq PRN Reason Stop Dose Admin Acetaminophen 650 mg 07/23/17 09:44 07/25/17 07:13 Tylenol - PO 650 mg Q4H PRN Administration FEVER OR PAIN Bacitracin 1 applic 07/25/17 11:30 Bacitracin - TP BID RAMONA Docusate Sodium 100 mg 07/25/17 14:00 Colace - PO TID RAMONA Enoxaparin Sodium 40 mg 07/24/17 10:00 07/25/17 10:05 Lovenox - SQ 40 mg DAILY RAMONA Administration Ampicillin Sodium/Sulbactam 100 mls @ 200 mls/hr 07/24/17 10:00 07/25/17 10:06 Sodium 3 gm/ Sodium Chloride IVPB 200 mls/hr Q8H-IV RAMONA Administration Clindamycin Phosphate 50 mls @ 100 mls/hr 07/24/17 10:00 07/25/17 10:52 Cleocin 300 Mg Premix Ivpb IVPB 100 mls/hr Q8H-IV RAMONA Administration Insulin Aspart 1 vial 07/24/17 11:56 07/25/17 11:51 Novolog Vial Sliding Scale - SQ 10 units TIDAC RAMONA Administration Protocol Insulin Aspart 1 vial 07/24/17 22:00 07/24/17 21:32 Novolog Vial Sliding Scale - SQ 4 units HS RAMONA Administration Protocol Insulin Detemir 18 units 07/24/17 22:00 07/24/17 21:29 Levemir Vial SQ 18 units HS RAMONA Administration Oxycodone HCl 5 mg 07/23/17 09:44 07/25/17 07:13 Roxicodone - PO 5 mg Q4H PRN Administration PAIN AP: Cellulitis/Abscess left buttock New Onset DM: A1c 11.1 Abx as per ID/Primary WBC improving ID consult called BGM QACHS Increase Levemir 22 units daily at HS Increase Novolog SS coverage by 4 units premeals Will F/U Problem List - Problems (1) Cellulitis Code(s): L03.90 - CELLULITIS, UNSPECIFIED (2) Diabetes Code(s): E11.9 - TYPE 2 DIABETES MELLITUS WITHOUT COMPLICATIONS
[2017-07-25] MEDS: BACITRACIN 15 GM TUBE TOPICAL OINTMENT TP SCH ×2 (12:44→22:24)
--- NOTE | 2017-07-25 14:47 | PN ---
Progress Note (short form) - Note Progress Note: ID Consult dictated L buttock/ perineal cellulitis Probable early abscess ? Oz's New onset DM Await c/s Empiric vancomycin/ zosyn
--- NOTE | 2017-07-25 15:19 | CONS ---
DATE OF CONSULTATION: DATE OF DICTATION: 07/25/2017 The patient is a 31-year-old previously healthy male who is evaluated for a left buttock abscess. He presented with a 3-day history of worsening left buttock pain. He developed nausea, vomiting, fever, and chills. He presented to the emergency room, where he was found to have cellulitis of the left buttock. A CT scan of the area was negative for discrete abscess or evidence of a necrotizing fasciitis. His course has been complicated by elevated blood sugars over 400. He was empirically treated with clindamycin and Unasyn. He complains of left buttock pain and is lying on his stomach to alleviate the pain. He denies prior history of serious soft tissue infection requiring hospitalization. He denies history of MRSA. He has, otherwise, been healthy. PAST MEDICAL HISTORY: Negative. No known allergies. MEDICATIONS AT THE PRESENT TIME: Clindamycin, Unasyn, Tylenol, Lovenox, Colace, Levemir, oxycodone. SOCIAL HISTORY: He is employed in the [employer] industry. 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 Has not been hospitalized recently. Positive history of tobacco. Denies history of alcohol abuse or illicit drug use. SYSTEMS REVIEW: Neurologic: No loss of consciousness, seizure activity, focal weakness. Cardiac: Negative chest pain or palpitations. Respiratory: Negative cough or sputum production. Gastrointestinal: Negative for diarrhea. Genitourinary: Negative for urinary tract infection. LABORATORY DATA: White count on admission 16.3, presently 8.1; hematocrit 37.5; platelet count 204. BUN 10, creatinine 0.8. Blood culture preliminarily negative. CT scan of the pelvis shows no evidence of organized abscess and no evidence of scrotal involvement. PHYSICAL EXAMINATION: General: He is awake and alert. He is not acutely toxic-appearing. In moderate distress secondary to buttock pain. Vital Signs: Temperature 97.6, blood pressure 133/77, pulse 80 and regular, respirations 20 per minute. HEENT: Sclerae anicteric. Heart Sounds: S1, S2. Lungs: Clear. Abdomen: Soft, nontender. Skin: On examination of the buttock area, there is exquisite tenderness and induration involving the left lower buttock area with extension to the perineum. The area is very tender to touch. It is indurated. There is no fluctuance. No drainage noted. IMPRESSION: 1. Left buttock/perineal cellulitis. 2. Probable early abscess formation. 3. New-onset diabetes mellitus. I am concerned about the potential for development of Oz gangrene in this new-onset diabetic. Will await blood cultures, will empirically treat with vancomycin and Zosyn. Surgical evaluation is appreciated. Warm compresses, analgesics. Will follow. Thank you for the kind referral. KEVIN COX M.D. [id number]
[2017-07-25] MEDS: VANCOMYCIN 1,250 MG in DEXTROSE 5%-WATER - 250 ML IVPB SCH (16:50)
[2017-07-25] MEDS ORDERED: DEXTROSE 5%-WATER 100 ML IVPB ONE (17:56)
[2017-07-25] MEDS ORDERED: PIPERACILLIN/TAZOBACTAM 4.5 GM VIAL IVPB ONE (17:56)
[2017-07-25] MEDS: PIPERACILLIN/TAZOB 4.5 GM 4.5 GM in DEXTROSE 5%-WATER 100 ML IVPB SCH (17:57)
[2017-07-25] MEDS ORDERED: SODIUM CHLORIDE IVPB SCH (18:00)
[2017-07-25] MEDS ORDERED: CLINDAMYCIN IVPB SCH (18:00)
[2017-07-25] MEDS ORDERED: oxyCODONE HCL 5 MG TABLET PO ONE (22:00)
[2017-07-25] MEDS ORDERED: INSULIN DETEMIR 100 UNITS/ML MDV SQ SCH (22:00)
[2017-07-26] MEDS: oxyCODONE HCL 5 MG TABLET PO PRN ×3 (00:12→19:44)
[2017-07-26] MEDS: ACETAMINOPHEN 325 MG TABLET (FP) PO PRN ×3 (00:13→18:23)
[2017-07-26] MEDS ORDERED: PIPERACILLIN/TAZOBACTAM 4.5 GM VIAL IVPB ONE ×3 (01:35→19:42)
[2017-07-26] MEDS ORDERED: DEXTROSE 5%-WATER 100 ML IVPB ONE ×3 (01:35→19:42)
[2017-07-26] MEDS: PIPERACILLIN/TAZOB 4.5 GM 4.5 GM in DEXTROSE 5%-WATER 100 ML IVPB SCH ×3 (01:57→19:46)
[2017-07-26] MEDS ORDERED: PT OWN MED DRAWER 7, Y5N ONE (02:33)
[2017-07-26] MEDS: VANCOMYCIN 1,250 MG in DEXTROSE 5%-WATER - 250 ML IVPB SCH ×2 (03:31→16:46)
[2017-07-26] MEDS: DOCUSATE SODIUM 100 MG CAPSULE (FP) PO SCH ×3 (06:06→22:22)
[2017-07-26] MEDS: INSULIN SLIDING SCALE (NOVOLOG) 1 VIAL SQ SCH ×4 (06:11→22:23)
[2017-07-26 07:26] LABS: BASOPHIL 0.5 % (0-2.0); MCH 28.4 pg (25.7-33.7); MCHC 33.9 g/dl (32.0-35.9); MEAN CELL VOLUME 83.9 fl (80-96); NEUTROPHILS 62.2 % (42.8-82.8); PLATELET COUNT 229 K/MM3 (134-434); RDW 12.7 % (11.9-15.9); WHITE BLOOD COUNT 7.5 K/mm3 (4.0-10.0)
[2017-07-26 08:15] LABS: ALBUMIN 3.5 g/dl (3.4-5.0); ALK PHOS 76 U/L (45-117); ANION GAP 8 (8-16); BILIRUBIN,TOTAL 0.9 mg/dL (0.2-1.0); CALCIUM 8.7 mg/dL (8.5-10.1); CO2 25 mmol/L (21-32); CREATININE 0.7 mg/dL (0.7-1.3); GLUCOSE,RANDOM 200 mg/dL (74-106); SGOT/AST 31 U/L (15-37); SGPT/ALT 43 U/L (12-78); TOT PROT 7.3 g/dl (6.4-8.2)
[2017-07-26] MEDS ORDERED: morphine CARPU-JECT 2 MG/1 ML DISP.SYRIN IVPUSH PRN (09:58)
--- NOTE | 2017-07-26 10:00 | PN ---
Physical Exam: SUBJECTIVE: Patient seen and examined at the bedside. Still reporting pain on left lower buttocks not relieved with Oxycodone 5mg. OBJECTIVE: Will change pain medications to morphine 1mg iv prn for increased pain. d/c oxycodone Pateint for I&D today with Dr. Berkowitz Vital Signs Period Temp Pulse Resp BP Sys/Schuler Pulse Ox Last 24 Hr 98.5 F-98.9 F 75-99 18-20 140-152/80-93 100 GENERAL: The patient is awake, alert, and fully oriented, in no acute distress. HEAD: Normal with no signs of trauma. EYES: PERRL, extraocular movements intact, sclera anicteric, conjunctiva clear. No ptosis. ENT: Ears normal, nares patent, oropharynx clear without exudates, moist mucous membranes. NECK: Trachea midline, full range of motion, supple. ABDOMEN: Soft, nontender, nondistended, normoactive bowel sounds, no guarding, no rebound, no hepatosplenomegaly, no masses. EXTREMITIES: 2+ pulses, warm, well-perfused, no edema. NEUROLOGICAL: Cranial nerves II through XII grossly intact. Normal speech, gait not observed. PSYCH: Normal mood, normal affect. SKIN: Left lower buttocks abcesss + pain, no drainage noted on my exam, but reportedly having minimal drainage Laboratory Results - last 24 hr 07/25/17 07/25/17 07/25/17 11:45 16:49 22:28 WBC RBC Hgb Hct MCV MCH MCHC RDW Plt Count MPV Neutrophils % Lymphocytes % Monocytes % Eosinophils % Basophils % Sodium Potassium Chloride Carbon Dioxide Anion Gap BUN Creatinine Creat Clearance w eGFR POC Glucometer 219 182 205 Random Glucose Calcium Total Bilirubin AST ALT Alkaline Phosphatase Total Protein Albumin 07/26/17 07/26/17 07/26/17 06:09 06:30 06:30 WBC 7.5 RBC 4.66 Hgb 13.3 Hct 39.1 MCV 83.9 MCH 28.4 MCHC 33.9 RDW 12.7 Plt Count 229 MPV 9.0 Neutrophils % 62.2 Lymphocytes % 26.1 Monocytes % 8.2 Eosinophils % 3.0 Basophils % 0.5 Sodium 135 L Potassium 3.6 Chloride 102 Carbon Dioxide 25 Anion Gap 8 BUN 9 Creatinine 0.7 Creat Clearance w eGFR > 60 POC Glucometer 209 Random Glucose 200 H Calcium 8.7 Total Bilirubin 0.9 AST 31 D ALT 43 Alkaline Phosphatase 76 Total Protein 7.3 Albumin 3.5 Active Medications Generic Name Dose Route Start Last Admin Trade Name Tere PRN Reason Stop Dose Admin Acetaminophen 650 mg 07/23/17 09:44 07/26/17 06:06 Tylenol - PO 650 mg Q4H PRN Administration FEVER OR PAIN Bacitracin 1 applic 07/25/17 11:30 07/25/17 22:24 Bacitracin - TP 1 applic BID RAMONA Administration Docusate Sodium 100 mg 07/25/17 14:00 07/26/17 06:06 Colace - PO 100 mg TID RAMONA Administration Enoxaparin Sodium 40 mg 07/24/17 10:00 07/25/17 10:05 Lovenox - SQ 40 mg DAILY RAMONA Administration Vancomycin HCl 1,250 mg/ 250 mls @ 166.667 mls/hr 07/25/17 14:45 07/26/17 03:31 Dextrose IVPB 166.667 mls/hr Q12H RAMONA Administration Piperacillin Sod/Tazobactam 100 mls @ 200 mls/hr 07/25/17 18:00 07/26/17 01:57 Sod 4.5 gm/ Dextrose IVPB 200 mls/hr Q8H-IV RAMONA Administration Protocol Insulin Aspart 1 vial 07/24/17 22:00 07/25/17 22:29 Novolog Vial Sliding Scale - SQ 4 units HS RAMONA Administration Protocol Insulin Aspart 1 vial 07/25/17 12:43 07/26/17 06:11 Novolog Vial Sliding Scale - SQ 12 units TIDAC RAMONA Administration Protocol Insulin Detemir 22 units 07/25/17 22:00 07/25/17 22:25 Levemir Vial SQ 22 units HS RAMONA Administration Morphine Sulfate 1 mg 07/26/17 09:58 Morphine Injection - IVPUSH Q6H PRN PAIN ASSESSMENT/PLAN: Patient is a 31 year old male with no significant past medical history, other than childhood asthma, presented to the ER on 07/23/2017 with nausea, vomiting, fever, chills and left buttock pain x 3 days . Patient states that he was periodically getting "bumps" in his grown area that resolved previously with warm compresses. He attempted to treat this left buttock discomfort with warm compresses but without any relief. He denies any prior history of diabetes or hyperglycemia in the past. His blood glucose in the ED was 445. He was admitted on 07/23/2017 with newly diagnosed diabetes mellitus and left medial buttock abscess/cellulitis. Imaging: CT abd/pelvis 07/23/2017 - Subcutanous fat haziness at the infermedial left buttocks which likely reflects cellulitis, no abscess is seen. Ultrasound 07/24/2017: inflammatory/phlegmonous changes in the region of clinical concern of the medial inferior left buttocks - no damnable collection ID: Sepsis on admission, now improving A/P: Secondary to left medial buttock abscess/cellulitis WBC stable, afebrile, mild tachycardia, blood cultures negative ID changed antibiotics to Zosyn and Vancomycin (both started 07/25/2017) Abscess now with minimal draining, will order wound culture Monitor vitals, labs For an I&D today with Dr. 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 Fluids: Tolerates PO Electrolytes: monitor Nutrition: diabetic diet Visit type - Emergency Visit Emergency Visit: Yes ED Registration Date: 07/23/17 Care time: The patient presented to the Emergency Department on the above date and was hospitalized for further evaluation of their emergent condition. - New Patient This patient is new to me today: No - Critical Care Critical Care patient: No - Discharge Referral Referred to [facility] Med P.C.: No
[2017-07-26] MEDS: BACITRACIN 15 GM TUBE TOPICAL OINTMENT TP SCH (10:25)
[2017-07-26] MEDS: ENOXAPARIN NA (PORCINE) 40 MG/0.4 ML DISP.SYRIN SQ SCH (10:31)
--- NOTE | 2017-07-26 10:44 | PN ---
Progress Note (short form) - Note Progress Note: Attending Surgeon Seen in f/u c/o increased pain VSS AF ttp; now draining IMP:ABSSSI perineum/perirectal area PLAN: To OR for EUA/I and D; r/b/t d/w patient; informed consent obtained. Adelso Berkowitz MD FACS
[2017-07-26] MEDS ORDERED: SODIUM CHLORIDE 1,000 ML IV SCH (11:00)
[2017-07-26] MEDS ORDERED: MIDAZOLAM HCL 2 MG/2 ML SINGLE DOSE VIAL ONE ×2 (11:39)
[2017-07-26] MEDS ORDERED: ONDANSETRON 4 MG/2 ML VIAL IVPUSH PRN (12:25)
[2017-07-26] MEDS ORDERED: PROMETHAZINE HCL 25 MG/1 ML VIAL IVPUSH PRN (12:25)
[2017-07-26] MEDS: SODIUM CHLORIDE 1,000 ML IV SCH (12:45)
--- NOTE | 2017-07-26 13:38 | OP ---
Operative Note - Note: Operative Date: 07/26/17 Pre-Operative Diagnosis: abscess of perineum/buttock Operation: EUA; I and D perirectal abscess Findings: perirectal abscess Post-Operative Diagnosis: Other (perirectal abscess) Surgeon: Adelso Berkowitz Anesthesiologist/BURLAPPER: Markell Quinonez Anesthesia: Spinal Estimated Blood Loss (mls): 10
--- NOTE | 2017-07-26 15:17 | PN ---
Progress Note, Physician History of Present Illness: Post op incision and drainage, perirectal abscess No c/o pain Afebrile WBC improved WNL BC no growth Wound c/s pending - Current Medication List Current Medications: Active Medications Acetaminophen (Tylenol -) 650 mg PO Q4H PRN PRN Reason: FEVER OR PAIN Acetaminophen/Codeine Phosphate (Tylenol # 3 -) 1 tab PO Q6H PRN PRN Reason: FEVER OR PAIN Docusate Sodium (Colace -) 100 mg PO TID RAMONA Enoxaparin Sodium (Lovenox -) 40 mg SQ DAILY RAMONA Sodium Chloride (Normal Saline -) 1,000 mls @ 100 mls/hr IV ASDIR RAMONA Vancomycin HCl 1,250 mg/ (Dextrose) 250 mls @ 166.667 mls/hr IVPB BID@0300, 1500 RAMONA Piperacillin Sod/Tazobactam (Sod 4.5 gm/ Dextrose) 100 mls @ 200 mls/hr IVPB Q8H-IV RAMONA PRN Reason: Protocol Insulin Aspart (Novolog Vial Sliding Scale -) 1 vial SQ TIDAC RAMONA PRN Reason: Protocol Insulin Detemir (Levemir Vial) 22 units SQ HS RAMONA Morphine Sulfate (Morphine Injection -) 1 mg IVPUSH Q6H PRN PRN Reason: PAIN Oxycodone HCl (Roxicodone -) 10 mg PO Q4H PRN PRN Reason: SEVERE PAIN Stop: 07/27/17 12:24 - Objective Vital Signs: Vital Signs Temperature 99.2 F 07/26/17 14:30 Pulse Rate 90 07/26/17 14:30 Respiratory Rate 16 07/26/17 14:30 Blood Pressure 130/70 07/26/17 14:30 O2 Sat by Pulse Oximetry (%) 99 07/26/17 14:15 Constitutional: Yes: No Distress Eyes: Yes: Conjunctiva Clear Cardiovascular: Yes: Regular Rate and Rhythm, S1, S2 Respiratory: Yes: CTA Bilaterally Gastrointestinal: Yes: Normal Bowel Sounds, Soft. No: Tenderness Peripheral Pulses WNL: No Labs: CBC, BMP 07/26/17 06:30 07/26/17 06:30 Assessment/Plan Post op incision and drainage perirectal abscess New onset diabetes mellitus Await culture results Continue zosyn/ vancomycin
[2017-07-26] MEDS ORDERED: INSULIN SLIDING SCALE (NOVOLOG) 1 VIAL SQ SCH (16:30)
[2017-07-26] MEDS: morphine CARPU-JECT 2 MG/1 ML DISP.SYRIN IVPUSH PRN (20:19)
[2017-07-26] MEDS ORDERED: INSULIN (NOVOLOG) ASPART 100 UNITS/ML 10ML VIAL ONE (21:15)
[2017-07-26] MEDS: ACETAMINOPHEN WITH CODEINE 300MG/30MG TABLET PO PRN (22:21)
[2017-07-26] MEDS: INSULIN DETEMIR 100 UNITS/ML MDV SQ SCH (22:23)
[2017-07-27] MEDS: oxyCODONE HCL 5 MG TABLET PO PRN ×2 (00:06→06:55)
[2017-07-27] MEDS: ACETAMINOPHEN 325 MG TABLET (FP) PO PRN ×2 (00:07→06:56)
[2017-07-27] MEDS ORDERED: DEXTROSE 5%-WATER 100 ML IVPB ONE ×2 (00:14→10:29)
[2017-07-27] MEDS ORDERED: PIPERACILLIN/TAZOBACTAM 4.5 GM VIAL IVPB ONE ×2 (00:14→10:28)
[2017-07-27] MEDS: PIPERACILLIN/TAZOB 4.5 GM 4.5 GM in DEXTROSE 5%-WATER 100 ML IVPB SCH ×3 (01:48→19:58)
[2017-07-27] MEDS: VANCOMYCIN 1,250 MG in DEXTROSE 5%-WATER - 250 ML IVPB SCH ×2 (02:42→17:15)
[2017-07-27] MEDS: SODIUM CHLORIDE 1,000 ML IV SCH (02:43)
[2017-07-27] MEDS: morphine CARPU-JECT 2 MG/1 ML DISP.SYRIN IVPUSH PRN ×2 (02:51→09:40)
[2017-07-27] MEDS: DOCUSATE SODIUM 100 MG CAPSULE (FP) PO SCH ×3 (06:54→21:25)
[2017-07-27] MEDS: INSULIN SLIDING SCALE (NOVOLOG) 1 VIAL SQ SCH ×4 (06:59→21:26)
[2017-07-27] MEDS ORDERED: INSULIN (NOVOLOG) ASPART 100 UNITS/ML 10ML VIAL ONE ×3 (07:06→20:33)
[2017-07-27 08:03] LABS: BASOPHIL 0.4 % (0-2.0); EOSINOPHIL 2.8 % (0-4.5); MCH 28.6 pg (25.7-33.7); MCHC 33.6 g/dl (32.0-35.9); MEAN CELL VOLUME 85.1 fl (80-96); MEAN PLT VOLUME 8.7 fl (7.5-11.1); NEUTROPHILS 62.4 % (42.8-82.8); PLATELET COUNT 266 K/MM3 (134-434); RDW 12.6 % (11.9-15.9); WHITE BLOOD COUNT 9.5 K/mm3 (4.0-10.0)
[2017-07-27 08:34] LABS: ALBUMIN 3.7 g/dl (3.4-5.0); ANION GAP 6 (8-16); CALCIUM 9.1 mg/dL (8.5-10.1); CO2 27 mmol/L (21-32); CREATININE 0.8 mg/dL (0.7-1.3); GLUCOSE,RANDOM 170 mg/dL (74-106); TOT PROT 7.7 g/dl (6.4-8.2)
[2017-07-27 08:35] LABS: ALK PHOS 89 U/L (45-117); SGOT/AST 45 U/L (15-37); SGPT/ALT 61 U/L (12-78)
--- NOTE | 2017-07-27 09:53 | PN ---
Progress Note (short form) - Note Progress Note: Attending Surgeon POD #1 Minimal c/o incisional pain VSS AF wound-packing removed; minimal drainage; o/w negative. WBC-wnl IMP: s/p I and D perirectal abscess PLAN: Continue present tx. as per primary care team; wound care orders placed. Adelso Berkowitz MD FACS
[2017-07-27] MEDS: morphine CARPU-JECT 4 MG/1 ML DISP.SYRIN IVPUSH PRN ×2 (11:03→20:37)
[2017-07-27] MEDS: ENOXAPARIN NA (PORCINE) 40 MG/0.4 ML DISP.SYRIN SQ SCH (11:10)
--- NOTE | 2017-07-27 13:34 | PN ---
Physical Exam: SUBJECTIVE: Patient seen and examined at the bedside He denies any shortness of breath. Verbalizing 9/10 pain at the surgical site. OBJECTIVE: Patient reported to have an episode of itching during Vancomycin administration last night + scattered fine rash on patient's upper back, no wheezing, no shortness of breath Spoke with ID: Hydrocortisone cream to patient's upper back BID Will give Benadryl 25mg IV 1/2 hour before Vanco. Please run the Vancomycin slowly between 75-100cc per hour and monitor patient for any symptoms. If becomes symptomatic, stop the vanco infusion. Vital Signs Period Temp Pulse Resp BP Sys/Schuler Pulse Ox Last 24 Hr 97.5 F-99.2 F 77-98 16-20 124-137/68-91 98-100 GENERAL: The patient is awake, alert, and fully oriented, in no acute distress. HEAD: Normal with no signs of trauma. EYES: PERRL, extraocular movements intact, sclera anicteric, conjunctiva clear. No ptosis. ENT: Ears normal, nares patent, oropharynx clear without exudates, moist mucous membranes. NECK: Trachea midline, full range of motion, supple. ABDOMEN: Soft, nontender, nondistended, normoactive bowel sounds, no guarding, no rebound, no hepatosplenomegaly, no masses. EXTREMITIES: 2+ pulses, warm, well-perfused, no edema. NEUROLOGICAL: Cranial nerves II through XII grossly intact. Normal speech, gait not observed. PSYCH: Normal mood, normal affect. SKIN: Left lower buttocks abcesss + pain, POD#1, dressing stained but intact Laboratory Results - last 24 hr 07/26/17 07/26/17 07/27/17 16:04 21:30 06:28 WBC RBC Hgb Hct MCV MCH MCHC RDW Plt Count MPV Neutrophils % Lymphocytes % Monocytes % Eosinophils % Basophils % Sodium Potassium Chloride Carbon Dioxide Anion Gap BUN Creatinine Creat Clearance w eGFR POC Glucometer 184 199 153 Random Glucose Calcium Total Bilirubin AST ALT Alkaline Phosphatase Total Protein Albumin 07/27/17 07/27/17 07/27/17 07:00 07:00 11:44 WBC 9.5 RBC 4.82 Hgb 13.8 Hct 41.0 MCV 85.1 MCH 28.6 MCHC 33.6 RDW 12.6 Plt Count 266 MPV 8.7 Neutrophils % 62.4 Lymphocytes % 26.5 Monocytes % 7.9 Eosinophils % 2.8 Basophils % 0.4 Sodium 135 L Potassium 4.4 D Chloride 102 Carbon Dioxide 27 Anion Gap 6 L BUN 7 D Creatinine 0.8 Creat Clearance w eGFR > 60 POC Glucometer 146 Random Glucose 170 H Calcium 9.1 Total Bilirubin 1.0 AST 45 H D ALT 61 D Alkaline Phosphatase 89 Total Protein 7.7 Albumin 3.7 Active Medications Generic Name Dose Route Start Last Admin Trade Name Freq PRN Reason Stop Dose Admin Acetaminophen 650 mg 07/26/17 12:54 07/27/17 06:56 Tylenol - PO 650 mg Q4H PRN Administration FEVER OR PAIN Acetaminophen/Codeine Phosphate 1 tab 07/26/17 12:32 07/26/17 22:21 Tylenol # 3 - PO 1 tab Q6H PRN Administration FEVER OR PAIN Docusate Sodium 100 mg 07/26/17 14:00 07/27/17 06:54 Colace - PO 100 mg TID RAMONA Administration Enoxaparin Sodium 40 mg 07/27/17 10:00 07/27/17 11:10 Lovenox - SQ 40 mg DAILY RAMONA Administration Vancomycin HCl 1,250 mg/ 250 mls @ 166.667 mls/hr 07/26/17 15:00 07/27/17 02:42 Dextrose IVPB 166.667 mls/hr BID@0300,1500 RAMONA Administration Piperacillin Sod/Tazobactam 100 mls @ 200 mls/hr 07/26/17 18:00 07/27/17 11:12 Sod 4.5 gm/ Dextrose IVPB 200 mls/hr Q8H-IV RAMONA Administration Protocol Insulin Aspart 1 vial 07/26/17 16:30 07/27/17 12:42 Novolog Vial Sliding Scale - SQ 8 units ACHS RAMONA Administration Protocol Insulin Detemir 22 units 07/26/17 22:00 07/26/17 22:23 Levemir Vial SQ 22 units HS RAMONA Administration Morphine Sulfate 4 mg 07/27/17 10:23 07/27/17 11:03 Morphine Injection - IVPUSH 4 mg Q6H PRN Administration PAIN ASSESSMENT/PLAN: Patient is a 31 year old male with no significant past medical history, other than childhood asthma, presented to the ER on 07/23/2017 with nausea, vomiting, fever, chills and left buttock pain x 3 days . Patient states that he was periodically getting "bumps" in his grown area that resolved previously with warm compresses. He attempted to treat this left buttock discomfort with warm compresses but without any relief. He denies any prior history of diabetes or hyperglycemia in the past. His blood glucose in the ED was 445. He was admitted on 07/23/2017 with newly diagnosed diabetes mellitus and left medial buttock abscess/cellulitis. Imaging: CT abd/pelvis 07/23/2017 - Subcutanous fat haziness at the infermedial left buttocks which likely reflects cellulitis, no abscess is seen. Ultrasound 07/24/2017: inflammatory/phlegmonous changes in the region of clinical concern of the medial inferior left buttocks - no damnable collection ID: Sepsis secondary to left medial buttock abscess/cellulitis/s/p an I&D - post op day #1 A/P: Wound culture with multiple organisms On Vanco and Zosyn as per ID Had likely reaction to Vancomycin overnight, with mild upper back rash Will slow down the infusion of the vanco, give Benadryl 25mg IV 1/2 hour before Vanco and monitor for signs/symptoms Hydrocortisone to patient's upper back BID WBC stable, afebrile, blood cultures negative Continue on Zosyn and Vancomycin (both started 07/25/2017) Morphine for pain management Endocrine: Diabetes Mellitus - new diagnosis on this admission A/P: Hgb a1c 11.1, 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 Fluids: Tolerates PO Electrolytes: monitor Nutrition: diabetic diet Visit type - Emergency Visit Emergency Visit: Yes ED Registration Date: 07/23/17 Care time: The patient presented to the Emergency Department on the above date and was hospitalized for further evaluation of their emergent condition. - New Patient This patient is new to me today: No - Critical Care Critical Care patient: No - Discharge Referral Referred to [facility] Med P.C.: No
[2017-07-27] MEDS ORDERED: VANCOMYCIN 1,250 MG in DEXTROSE 5%-WATER - 250 ML IVPB SCH (13:38)
[2017-07-27] MEDS ORDERED: HYDROCORTISONE 1% TOPICAL CREAM 30 GM TUBE TP PRN (13:41)
[2017-07-27] MEDS ORDERED: SENNOSIDES 8.6MG TABLET (FP) PO PRN (13:52)
--- NOTE | 2017-07-27 14:48 | PN ---
Progress Note, Physician History of Present Illness: Developed pruritis after vanco infusion No fever/ chills WBC WNL BC (-) Wound c/s mixed - Current Medication List Current Medications: Active Medications Acetaminophen (Tylenol -) 650 mg PO Q4H PRN PRN Reason: FEVER OR PAIN Last Admin: 07/27/17 06:56 Dose: 650 mg Acetaminophen/Codeine Phosphate (Tylenol # 3 -) 1 tab PO Q6H PRN PRN Reason: FEVER OR PAIN Last Admin: 07/26/17 22:21 Dose: 1 tab Diphenhydramine HCl (Benadryl Injection -) 25 mg IVPB BID@0230,1430 [facility] Docusate Sodium (Colace -) 100 mg PO TID [facility] Last Admin: 07/27/17 13:49 Dose: 100 mg Enoxaparin Sodium (Lovenox -) 40 mg SQ DAILY [facility] Last Admin: 07/27/17 11:10 Dose: 40 mg Hydrocortisone (Hytone 1% Cream -) 1 applic TP BID PRN PRN Reason: RASH Piperacillin Sod/Tazobactam (Sod 4.5 gm/ Dextrose) 100 mls @ 200 mls/hr IVPB Q8H-IV RAMONA PRN Reason: Protocol Last Admin: 07/27/17 11:12 Dose: 200 mls/hr Vancomycin HCl 1,250 mg/ (Dextrose) 250 mls @ 75 mls/hr IVPB BID@0300,1500 [facility] Insulin Aspart (Novolog Vial Sliding Scale -) 1 vial SQ ACHS RAMONA PRN Reason: Protocol Last Admin: 07/27/17 12:42 Dose: 8 units Insulin Detemir (Levemir Vial) 22 units SQ HS RAMONA Last Admin: 07/26/17 22:23 Dose: 22 units Morphine Sulfate (Morphine Injection -) 4 mg IVPUSH Q6H PRN PRN Reason: PAIN Last Admin: 07/27/17 11:03 Dose: 4 mg Senna (Senna -) 2 tab PO HS PRN PRN Reason: CONSTIPATION - Objective Vital Signs: Vital Signs Temperature 97.5 F L 07/27/17 09:30 Pulse Rate 92 H 07/27/17 11:00 Respiratory Rate 18 07/27/17 11:00 Blood Pressure 136/68 07/27/17 11:00 O2 Sat by Pulse Oximetry (%) 98 07/26/17 15:30 Constitutional: Yes: No Distress Eyes: Yes: Conjunctiva Clear Cardiovascular: Yes: Regular Rate and Rhythm, S1, S2 Respiratory: Yes: CTA Bilaterally Gastrointestinal: Yes: Normal Bowel Sounds, Soft. 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
--- NOTE | 2017-07-27 18:11 | PN ---
Progress Note (short form) - Note Progress Note: ANESTHESIA POSTOP: 31 yo male POD #1, spinal anesthesia, recovered without incident. Tolerating PO , pain adequately controlled. Encouraged ambulation and IS
--- NOTE | 2017-07-27 18:33 | PN ---
Progress Note (short form) - Note Progress Note: Blood sugar improving No hypos s/P I & D of perirectal abscess less pain in the gluteal region Vital Signs Period Temp Pulse Resp BP Sys/Schuler Pulse Ox Last 24 Hr 97.5 F-100.3 F 77-97 16-18 126-136/68-91 97 PE: AOx3 Neck: Supple, No JVD HEENT: PERRL, EOMI Lungs: CTA CVS: S1S2 Abd: Benign Ext: No edema Neuro: No focal deficit CBC,CMP WBC 9.5 K/mm3 (4.0-10.0) 07/27/17 07:00 RBC 4.82 M/mm3 (4.00-5.60) 07/27/17 07:00 Hgb 13.8 GM/dL (11.7-16.9) 07/27/17 07:00 Hct 41.0 % (35.4-49) 07/27/17 07:00 MCV 85.1 fl (80-96) 07/27/17 07:00 MCH 28.6 pg (25.7-33.7) 07/27/17 07:00 MCHC 33.6 g/dl (32.0-35.9) 07/27/17 07:00 RDW 12.6 % (11.9-15.9) 07/27/17 07:00 Plt Count 266 K/MM3 (134-434) 07/27/17 07:00 MPV 8.7 fl (7.5-11.1) 07/27/17 07:00 Neutrophils % 62.4 % (42.8-82.8) 07/27/17 07:00 Lymphocytes % 26.5 % (8-40) 07/27/17 07:00 Monocytes % 7.9 % (3.8-10.2) 07/27/17 07:00 Eosinophils % 2.8 % (0-4.5) 07/27/17 07:00 Basophils % 0.4 % (0-2.0) 07/27/17 07:00 Sodium 135 mmol/L (136-145) L 07/27/17 07:00 Potassium 4.4 mmol/L (3.5-5.1) D 07/27/17 07:00 Chloride 102 mmol/L (98-107) 07/27/17 07:00 Carbon Dioxide 27 mmol/L (21-32) 07/27/17 07:00 Anion Gap 6 (8-16) L 07/27/17 07:00 BUN 7 mg/dL (7-18) D 07/27/17 07:00 Creatinine 0.8 mg/dL (0.7-1.3) 07/27/17 07:00 Creat Clearance w eGFR > 60 (>60) 07/27/17 07:00 POC Glucometer 186 UNITS (()) 07/27/17 16:11 Random Glucose 170 mg/dL (74-106) H 07/27/17 07:00 Hemoglobin A1c % 11.1 % (4.8-6.0) H 07/23/17 10:46 Lactic Acid 1.4 mmol/L (0.4-2.0) 07/23/17 10:46 Calcium 9.1 mg/dL (8.5-10.1) 07/27/17 07:00 Phosphorus 3.1 mg/dL (2.5-4.9) 07/24/17 06:05 Magnesium 1.9 mg/dL (1.8-2.4) 07/24/17 06:05 Total Bilirubin 1.0 mg/dL (0.2-1.0) 07/27/17 07:00 AST 45 U/L (15-37) H D 07/27/17 07:00 ALT 61 U/L (12-78) D 07/27/17 07:00 Alkaline Phosphatase 89 U/L (45-117) 07/27/17 07:00 C-Reactive Protein 4.9 MG/DL (0.00-0.3) H 07/23/17 01:47 Total Protein 7.7 g/dl (6.4-8.2) 07/27/17 07:00 Albumin 3.7 g/dl (3.4-5.0) 07/27/17 07:00 Lipase 202 U/L (73-393) 07/23/17 01:47 CMP Sodium 135 mmol/L (136-145) L 07/27/17 07:00 Potassium 4.4 mmol/L (3.5-5.1) D 07/27/17 07:00 Chloride 102 mmol/L (98-107) 07/27/17 07:00 Carbon Dioxide 27 mmol/L (21-32) 07/27/17 07:00 Anion Gap 6 (8-16) L 07/27/17 07:00 BUN 7 mg/dL (7-18) D 07/27/17 07:00 Creatinine 0.8 mg/dL (0.7-1.3) 07/27/17 07:00 Creat Clearance w eGFR > 60 (>60) 07/27/17 07:00 POC Glucometer 186 UNITS (()) 07/27/17 16:11 Random Glucose 170 mg/dL (74-106) H 07/27/17 07:00 Hemoglobin A1c % 11.1 % (4.8-6.0) H 07/23/17 10:46 Lactic Acid 1.4 mmol/L (0.4-2.0) 07/23/17 10:46 Calcium 9.1 mg/dL (8.5-10.1) 07/27/17 07:00 Phosphorus 3.1 mg/dL (2.5-4.9) 07/24/17 06:05 Magnesium 1.9 mg/dL (1.8-2.4) 07/24/17 06:05 Total Bilirubin 1.0 mg/dL (0.2-1.0) 07/27/17 07:00 AST 45 U/L (15-37) H D 07/27/17 07:00 ALT 61 U/L (12-78) D 07/27/17 07:00 Alkaline Phosphatase 89 U/L (45-117) 07/27/17 07:00 C-Reactive Protein 4.9 MG/DL (0.00-0.3) H 07/23/17 01:47 Total Protein 7.7 g/dl (6.4-8.2) 07/27/17 07:00 Albumin 3.7 g/dl (3.4-5.0) 07/27/17 07:00 Lipase 202 U/L (73-393) 07/23/17 01:47 AP: S/P Drainage of perirectal abscess New Onset DM: A1c 11.1 Abx as per ID/Primary WBC improving ID consult noted BGM QACHS Levemir 22 units daily at HS Novolog SS coverage by 4 units premeals Will F/U Problem List - Problems (1) Cellulitis Code(s): L03.90 - CELLULITIS, UNSPECIFIED (2) Diabetes Code(s): E11.9 - TYPE 2 DIABETES MELLITUS WITHOUT COMPLICATIONS
[2017-07-27] MEDS: INSULIN DETEMIR 100 UNITS/ML MDV SQ SCH (21:25)
[2017-07-28] MEDS: PIPERACILLIN/TAZOB 4.5 GM 4.5 GM in DEXTROSE 5%-WATER 100 ML IVPB SCH ×3 (01:48→19:14)
[2017-07-28] MEDS: VANCOMYCIN 1,250 MG in DEXTROSE 5%-WATER - 250 ML IVPB SCH (02:25)
[2017-07-28] MEDS: morphine CARPU-JECT 4 MG/1 ML DISP.SYRIN IVPUSH PRN (06:42)
[2017-07-28] MEDS: DOCUSATE SODIUM 100 MG CAPSULE (FP) PO SCH ×3 (06:42→22:29)
[2017-07-28] MEDS: INSULIN SLIDING SCALE (NOVOLOG) 1 VIAL SQ SCH ×4 (06:42→22:29)
[2017-07-28 08:44] LABS: BASOPHIL 0.4 % (0-2.0); EOSINOPHIL 4.4 % (0-4.5); MCH 28.1 pg (25.7-33.7); MCHC 32.8 g/dl (32.0-35.9); MEAN CELL VOLUME 85.4 fl (80-96); MEAN PLT VOLUME 8.7 fl (7.5-11.1); NEUTROPHILS 66.3 % (42.8-82.8); PLATELET COUNT 276 K/MM3 (134-434); RDW 12.6 % (11.9-15.9)
[2017-07-28 09:04] LABS: ALBUMIN 3.4 g/dl (3.4-5.0); ANION GAP 11 (8-16); CO2 24 mmol/L (21-32); CREATININE 0.9 mg/dL (0.7-1.3); GLUCOSE,RANDOM 173 mg/dL (74-106); SGOT/AST 42 U/L (15-37); SGPT/ALT 56 U/L (12-78)
[2017-07-28 09:06] LABS: ALK PHOS 90 U/L (45-117); BILIRUBIN,TOTAL 0.8 mg/dL (0.2-1.0); TOT PROT 7.3 g/dl (6.4-8.2)
--- NOTE | 2017-07-28 09:07 | PN ---
Progress Note (short form) - Note Progress Note: C/O pain at abscess site fluctuating blood sugar No hypos s/P I & D of perirectal abscess Vital Signs Period Temp Pulse Resp BP Sys/Schuler Pulse Ox Last 24 Hr 97.5 F-100.3 F 90-103 16-18 111-136/68-79 PE: AOx3 Neck: Supple, No JVD HEENT: PERRL, EOMI Lungs: CTA CVS: S1S2 Abd: Benign Ext: No edema Neuro: No focal deficit CBCD WBC 7.0 K/mm3 (4.0-10.0) 07/28/17 07:10 RBC 4.50 M/mm3 (4.00-5.60) 07/28/17 07:10 Hgb 12.6 GM/dL (11.7-16.9) 07/28/17 07:10 Hct 38.5 % (35.4-49) 07/28/17 07:10 MCV 85.4 fl (80-96) 07/28/17 07:10 MCHC 32.8 g/dl (32.0-35.9) 07/28/17 07:10 RDW 12.6 % (11.9-15.9) 07/28/17 07:10 Plt Count 276 K/MM3 (134-434) 07/28/17 07:10 MPV 8.7 fl (7.5-11.1) 07/28/17 07:10 CMP Sodium 136 mmol/L (136-145) 07/28/17 07:10 Potassium 4.0 mmol/L (3.5-5.1) 07/28/17 07:10 Chloride 101 mmol/L (98-107) 07/28/17 07:10 Carbon Dioxide 24 mmol/L (21-32) 07/28/17 07:10 Anion Gap 11 (8-16) 07/28/17 07:10 BUN 6 mg/dL (7-18) L 07/28/17 07:10 Creatinine 0.9 mg/dL (0.7-1.3) 07/28/17 07:10 Creat Clearance w eGFR > 60 (>60) 07/28/17 07:10 Calcium 9.0 mg/dL (8.5-10.1) 07/28/17 07:10 Total Bilirubin 1.0 mg/dL (0.2-1.0) 07/27/17 07:00 AST 42 U/L (15-37) H 07/28/17 07:10 ALT 56 U/L (12-78) 07/28/17 07:10 Alkaline Phosphatase 89 U/L (45-117) 07/27/17 07:00 Total Protein 7.7 g/dl (6.4-8.2) 07/27/17 07:00 Albumin 3.4 g/dl (3.4-5.0) 07/28/17 07:10 Current Medications Generic Name Dose Route Start Last Admin Trade Name Freq PRN Reason Stop Dose Admin Acetaminophen 650 mg 07/26/17 12:54 07/27/17 06:56 Tylenol - PO 650 mg Q4H PRN Administration FEVER OR PAIN Acetaminophen/Codeine Phosphate 1 tab 07/26/17 12:32 07/26/17 22:21 Tylenol # 3 - PO 1 tab Q6H PRN Administration FEVER OR PAIN Diphenhydramine HCl 25 mg 07/27/17 14:30 07/28/17 02:05 Benadryl Injection - IVPB 25 mg BID@0230,1430 RAMONA Administration Docusate Sodium 100 mg 07/26/17 14:00 07/28/17 06:42 Colace - PO 100 mg TID RAMONA Administration Enoxaparin Sodium 40 mg 07/27/17 10:00 07/27/17 11:10 Lovenox - SQ 40 mg DAILY RAMONA Administration Hydrocortisone 1 applic 07/27/17 13:41 07/27/17 17:30 Hytone 1% Cream - TP 1 applic BID PRN Administration RASH Piperacillin Sod/Tazobactam 100 mls @ 200 mls/hr 07/26/17 18:00 07/28/17 01:48 Sod 4.5 gm/ Dextrose IVPB 200 mls/hr Q8H-IV RAMONA Administration Protocol Vancomycin HCl 1,250 mg/ 250 mls @ 75 mls/hr 07/27/17 15:00 07/28/17 02:25 Dextrose IVPB 75 mls/hr BID@0300,1500 RAMONA Administration Insulin Aspart 1 vial 07/26/17 16:30 07/28/17 06:42 Novolog Vial Sliding Scale - SQ 10 units ACHS RAMONA Administration Protocol Insulin Detemir 22 units 07/26/17 22:00 07/27/17 21:25 Levemir Vial SQ 22 units HS RAMONA Administration Morphine Sulfate 4 mg 07/27/17 10:23 07/28/17 06:42 Morphine Injection - IVPUSH 4 mg Q6H PRN Administration PAIN Senna 2 tab 07/27/17 13:52 Senna - PO HS PRN CONSTIPATION AP: S/P Drainage of perirectal abscess New Onset DM: A1c 11.1 Abx as per ID/Primary WBC improving ID consult noted BGM QACHS Levemir 22 units daily at HS Novolog SS coverage Mix all Abx in non dextrose solutions if possible. Will F/U Problem List - Problems (1) Cellulitis Code(s): L03.90 - CELLULITIS, UNSPECIFIED (2) Diabetes Code(s): E11.9 - TYPE 2 DIABETES MELLITUS WITHOUT COMPLICATIONS
--- NOTE | 2017-07-28 09:51 | OP ---
DATE OF OPERATION: 07/26/2017 PREOPERATIVE DIAGNOSIS: Left perirectal abscess. POSTOPERATIVE DIAGNOSIS: Left perirectal abscess. PROCEDURE PERFORMED: Examination under anesthesia, and incision and drainage of left perirectal abscess. SURGEON: Adelso Berkowitz M.D. ANESTHESIA: Regional. OPERATIVE FINDINGS: There was an extensive left perirectal abscess. There was no evidence of fistula in ano at the present time. The rest of the exam was unremarkable. DESCRIPTION OF PROCEDURE: The patient was placed on the operating table in the dorsal lithotomy position. After placement of spinal anesthesia, the perineum and perirectal area were prepped with Betadine and draped in sterile fashion. A time-out was taken. An incision was made over the left perirectal fluctuant area. Purulent drainage was sent for culture and sensitivity. All septations in the cavity were broken up using digital exploration. Copious irrigation was carried out with saline and peroxide in a 50:50 concentration. Hemostasis was secured with electrocautery. The wound was then packed with 2-inch vaginal packing. Dry sterile dressings were placed, and a Rivear shield was placed to keep the dressing intact. The procedure terminated at this point. The patient was transferred to the postanesthesia care unit in stable condition, awake and alert. ESTIMATED BLOOD LOSS: Approximately 10 mL. REPLACEMENT: Crystalloid. DRAINS: None. SPECIMEN: Culture and sensitivity of abscess to Microbiology. I, Adelso Berkowitz, was physically present in the operating room from the time the patient was placed on the operating room table until he was transferred to the postanesthesia care unit in my accompaniment. MD DIMAS Delgado/[id number]
[2017-07-28] MEDS ORDERED: PIPERACILLIN/TAZOBACTAM 4.5 GM VIAL IVPB ONE ×2 (10:27→17:09)
[2017-07-28] MEDS ORDERED: DEXTROSE 5%-WATER 100 ML IVPB ONE ×2 (10:27→17:09)
[2017-07-28] MEDS: ENOXAPARIN NA (PORCINE) 40 MG/0.4 ML DISP.SYRIN SQ SCH (10:31)
[2017-07-28] MEDS ORDERED: diphenhydrAMINE HCL 25 MG CAPSULE (FP) PO PRN (11:57)
[2017-07-28] MEDS ORDERED: INSULIN (NOVOLOG) ASPART 100 UNITS/ML 10ML VIAL ONE (12:24)
--- NOTE | 2017-07-28 14:41 | PN ---
Progress Note (short form) - Note Progress Note: Attending Surgeon POD #2 Feels better; wound care in progress; being followed by ID VSS AF wound packed; no drainage; less induration WBC WNL Cultures noted IMP:perirectal abscess PLAN: Sitz baths and f/u in my office after discharge. Adelso Berkowitz MD FACS
[2017-07-28] MEDS: VANCOMYCIN 1,250 MG in SODIUM CHLORIDE 250 ML IVPB SCH (16:59)
--- NOTE | 2017-07-28 17:00 | PN ---
Physical Exam: SUBJECTIVE: Patient seen and examined OBJECTIVE: Patient reports doing better. Tolerating Vancomycin with the Beneadryl IV pre infusion. Wound culture pending. Vital Signs Period Temp Pulse Resp BP Sys/Schuler Pulse Ox Last 24 Hr 98.1 F-100.3 F 90-103 18-18 111-134/59-98 98 GENERAL: The patient is awake, alert, and fully oriented, in no acute distress. HEAD: Normal with no signs of trauma. EYES: PERRL, extraocular movements intact, sclera anicteric, conjunctiva clear. No ptosis. ENT: Ears normal, nares patent, oropharynx clear without exudates, moist mucous membranes. NECK: Trachea midline, full range of motion, supple. ABDOMEN: Soft, nontender, nondistended, normoactive bowel sounds, no guarding, no rebound, no hepatosplenomegaly, no masses. EXTREMITIES: 2+ pulses, warm, well-perfused, no edema. NEUROLOGICAL: Cranial nerves II through XII grossly intact. Normal speech, gait not observed. PSYCH: Normal mood, normal affect. SKIN: Left lower buttocks abcesss + pain, POD#2, dressing stained but intact Laboratory Results - last 24 hr 07/27/17 07/28/17 07/28/17 21:10 05:40 07:10 WBC 7.0 RBC 4.50 Hgb 12.6 Hct 38.5 MCV 85.4 MCH 28.1 MCHC 32.8 RDW 12.6 Plt Count 276 MPV 8.7 Neutrophils % 66.3 Lymphocytes % 21.2 Monocytes % 7.7 Eosinophils % 4.4 Basophils % 0.4 Sodium Potassium Chloride Carbon Dioxide Anion Gap BUN Creatinine Creat Clearance w eGFR POC Glucometer 280 164 Random Glucose Calcium Total Bilirubin AST ALT Alkaline Phosphatase Total Protein Albumin 07/28/17 07:10 WBC RBC Hgb Hct MCV MCH MCHC RDW Plt Count MPV Neutrophils % Lymphocytes % Monocytes % Eosinophils % Basophils % Sodium 136 Potassium 4.0 Chloride 101 Carbon Dioxide 24 Anion Gap 11 BUN 6 L Creatinine 0.9 Creat Clearance w eGFR > 60 POC Glucometer Random Glucose 173 H Calcium 9.0 Total Bilirubin 0.8 AST 42 H ALT 56 Alkaline Phosphatase 90 Total Protein 7.3 Albumin 3.4 Active Medications Generic Name Dose Route Start Last Admin Trade Name Freq PRN Reason Stop Dose Admin Acetaminophen 650 mg 07/26/17 12:54 07/27/17 06:56 Tylenol - PO 650 mg Q4H PRN Administration FEVER OR PAIN Acetaminophen/Codeine Phosphate 1 tab 07/26/17 12:32 07/26/17 22:21 Tylenol # 3 - PO 1 tab Q6H PRN Administration FEVER OR PAIN Diphenhydramine HCl 25 mg 07/27/17 14:30 07/28/17 15:02 Benadryl Injection - IVPB Not Given BID@0230,1430 RAMONA Diphenhydramine HCl 25 mg 07/28/17 11:57 Benadryl - PO Q6H PRN FOR ITCHING Docusate Sodium 100 mg 07/26/17 14:00 07/28/17 15:02 Colace - PO 100 mg TID RAMONA Administration Enoxaparin Sodium 40 mg 07/27/17 10:00 07/28/17 10:31 Lovenox - SQ 40 mg DAILY RAMONA Administration Hydrocortisone 1 applic 07/27/17 13:41 07/27/17 17:30 Hytone 1% Cream - TP 1 applic BID PRN Administration RASH Piperacillin Sod/Tazobactam 100 mls @ 200 mls/hr 07/26/17 18:00 07/28/17 10:31 Sod 4.5 gm/ Dextrose IVPB 200 mls/hr Q8H-IV RAMONA Administration Protocol Vancomycin HCl 1,250 mg/ 250 mls @ 125 mls/hr 07/28/17 15:00 Sodium Chloride IVPB BID@0300,1500 RAMONA Insulin Aspart 1 vial 07/26/17 16:30 07/28/17 12:28 Novolog Vial Sliding Scale - SQ 10 units ACHS RAMONA Administration Protocol Insulin Detemir 22 units 07/26/17 22:00 07/27/17 21:25 Levemir Vial SQ 22 units HS RAMONA Administration Morphine Sulfate 4 mg 07/27/17 10:23 07/28/17 06:42 Morphine Injection - IVPUSH 4 mg Q6H PRN Administration PAIN Senna 2 tab 07/27/17 13:52 Senna - PO HS PRN CONSTIPATION ASSESSMENT/PLAN: Patient is a 31 year old male with no significant past medical history, other than childhood asthma, presented to the ER on 07/23/2017 with nausea, vomiting, fever, chills and left buttock pain x 3 days . Patient states that he was periodically getting "bumps" in his grown area that resolved previously with warm compresses. He attempted to treat this left buttock discomfort with warm compresses but without any relief. He denies any prior history of diabetes or hyperglycemia in the past. His blood glucose in the ED was 445. He was admitted on 07/23/2017 with newly diagnosed diabetes mellitus and left medial buttock abscess/cellulitis. Imaging: CT abd/pelvis 07/23/2017 - Subcutanous fat haziness at the infermedial left buttocks which likely reflects cellulitis, no abscess is seen. Ultrasound 07/24/2017: inflammatory/phlegmonous changes in the region of clinical concern of the medial inferior left buttocks - no damnable collection ID: Sepsis secondary to left medial buttock abscess/cellulitis/s/p an I&D - post op day #2 A/P: Wound culture with multiple organisms, sensitivities pending Tolerating Vancomycin at a slower infusion rate, but still needs to be premedicated with IV benadryl 1/2 hour prior WBC stable, afebrile, blood cultures negative Continue on Zosyn and Vancomycin (both started 07/25/2017) Morphine for pain management Endocrine: Diabetes Mellitus - new diagnosis on this admission A/P: Hgb a1c 11.1, residential team leader following Nyla, Carmel Tom Patient is receiving ongong nutrition education, RD following Patient needs Glucometer teaching, RN to provide ongoing teaching Diabetic diet Prophylaxis: DVT: Lovenox 40mg daily GI: colace, Protonix F.E.N. Fluids: Tolerates PO Electrolytes: monitor Nutrition: diabetic diet
[2017-07-28] MEDS: INSULIN DETEMIR 100 UNITS/ML MDV SQ SCH (22:29)
[2017-07-29] MEDS ORDERED: PIPERACILLIN/TAZOBACTAM 4.5 GM VIAL IVPB ONE ×2 (01:00→10:05)
[2017-07-29] MEDS ORDERED: DEXTROSE 5%-WATER 100 ML IVPB ONE ×2 (01:01→10:05)
[2017-07-29] MEDS: PIPERACILLIN/TAZOB 4.5 GM 4.5 GM in DEXTROSE 5%-WATER 100 ML IVPB SCH ×2 (01:17→11:03)
[2017-07-29] MEDS: ACETAMINOPHEN WITH CODEINE 300MG/30MG TABLET PO PRN (01:25)
[2017-07-29] MEDS: VANCOMYCIN 1,250 MG in SODIUM CHLORIDE 250 ML IVPB SCH ×2 (02:50→15:23)
[2017-07-29] MEDS: INSULIN SLIDING SCALE (NOVOLOG) 1 VIAL SQ SCH ×3 (06:17→16:29)
[2017-07-29] MEDS: DOCUSATE SODIUM 100 MG CAPSULE (FP) PO SCH ×2 (06:21→13:23)
[2017-07-29 08:34] LABS: BASOPHIL 0.6 % (0-2.0); EOSINOPHIL 5.3 % (0-4.5); MCH 28.2 pg (25.7-33.7); MCHC 33.2 g/dl (32.0-35.9); MEAN CELL VOLUME 84.8 fl (80-96); MEAN PLT VOLUME 8.6 fl (7.5-11.1); PLATELET COUNT 287 K/MM3 (134-434); RDW 12.7 % (11.9-15.9); WHITE BLOOD COUNT 7.6 K/mm3 (4.0-10.0)
[2017-07-29 08:58] LABS: ALBUMIN 3.4 g/dl (3.4-5.0); ALK PHOS 80 U/L (45-117); ANION GAP 8 (8-16); BILIRUBIN,TOTAL 0.6 mg/dL (0.2-1.0); CO2 25 mmol/L (21-32); GLUCOSE,RANDOM 140 mg/dL (74-106); SGOT/AST 47 U/L (15-37); SGPT/ALT 61 U/L (12-78); TOT PROT 7.2 g/dl (6.4-8.2)
--- NOTE | 2017-07-29 09:20 | PN ---
Progress Note (short form) - Note Progress Note: Less pain today blood sugar stable No hypos Vital Signs Period Temp Pulse Resp BP Sys/Schuler Pulse Ox Last 24 Hr 98.1 F-98.7 F 81-104 18-18 113-136/59-98 PE: AOx3 Neck: Supple, No JVD HEENT: PERRL, EOMI Lungs: CTA CVS: S1S2 Abd: Benign Ext: No edema Neuro: No focal deficit CMP Sodium 139 mmol/L (136-145) 07/29/17 06:45 Potassium 3.8 mmol/L (3.5-5.1) 07/29/17 06:45 Chloride 106 mmol/L (98-107) 07/29/17 06:45 Carbon Dioxide 25 mmol/L (21-32) 07/29/17 06:45 Anion Gap 8 (8-16) 07/29/17 06:45 BUN 10 mg/dL (7-18) D 07/29/17 06:45 Creatinine 1.0 mg/dL (0.7-1.3) 07/29/17 06:45 Creat Clearance w eGFR > 60 (>60) 07/29/17 06:45 POC Glucometer 143 UNITS (()) 07/29/17 06:08 Random Glucose 140 mg/dL (74-106) H 07/29/17 06:45 Hemoglobin A1c % 11.1 % (4.8-6.0) H 07/23/17 10:46 Lactic Acid 1.4 mmol/L (0.4-2.0) 07/23/17 10:46 Calcium 9.0 mg/dL (8.5-10.1) 07/29/17 06:45 Phosphorus 3.1 mg/dL (2.5-4.9) 07/24/17 06:05 Magnesium 1.9 mg/dL (1.8-2.4) 07/24/17 06:05 Total Bilirubin 0.6 mg/dL (0.2-1.0) D 07/29/17 06:45 AST 47 U/L (15-37) H 07/29/17 06:45 ALT 61 U/L (12-78) 07/29/17 06:45 Alkaline Phosphatase 80 U/L (45-117) 07/29/17 06:45 C-Reactive Protein 4.9 MG/DL (0.00-0.3) H 07/23/17 01:47 Total Protein 7.2 g/dl (6.4-8.2) 07/29/17 06:45 Albumin 3.4 g/dl (3.4-5.0) 07/29/17 06:45 Lipase 202 U/L (73-393) 07/23/17 01:47 Current Medications Generic Name Dose Route Start Last Admin Trade Name Freq PRN Reason Stop Dose Admin Acetaminophen 650 mg 07/26/17 12:54 07/27/17 06:56 Tylenol - PO 650 mg Q4H PRN Administration FEVER OR PAIN Acetaminophen/Codeine Phosphate 1 tab 07/26/17 12:32 07/29/17 01:25 Tylenol # 3 - PO 1 tab Q6H PRN Administration FEVER OR PAIN Diphenhydramine HCl 25 mg 07/27/17 14:30 07/29/17 01:51 Benadryl Injection - IVPB 25 mg BID@0230,1430 RAMONA Administration Diphenhydramine HCl 25 mg 07/28/17 11:57 Benadryl - PO Q6H PRN FOR ITCHING Docusate Sodium 100 mg 07/26/17 14:00 07/29/17 06:21 Colace - PO 100 mg TID RAMONA Administration Enoxaparin Sodium 40 mg 07/27/17 10:00 07/28/17 10:31 Lovenox - SQ 40 mg DAILY RAMONA Administration Hydrocortisone 1 applic 07/27/17 13:41 07/27/17 17:30 Hytone 1% Cream - TP 1 applic BID PRN Administration RASH Piperacillin Sod/Tazobactam 100 mls @ 200 mls/hr 07/26/17 18:00 07/29/17 01:17 Sod 4.5 gm/ Dextrose IVPB 200 mls/hr Q8H-IV RAMONA Administration Protocol Vancomycin HCl 1,250 mg/ 250 mls @ 125 mls/hr 07/28/17 15:00 07/29/17 02:50 Sodium Chloride IVPB 125 mls/hr BID@0300,1500 RAMONA Administration Insulin Aspart 1 vial 07/26/17 16:30 07/29/17 06:17 Novolog Vial Sliding Scale - SQ Not Given ACHS [facility] Protocol Insulin Detemir 22 units 07/26/17 22:00 07/28/17 22:29 Levemir Vial SQ 22 units HS RAMONA Administration Morphine Sulfate 4 mg 07/27/17 10:23 07/28/17 06:42 Morphine Injection - IVPUSH 4 mg Q6H PRN Administration PAIN Senna 2 tab 07/27/17 13:52 Senna - PO HS PRN CONSTIPATION AP: S/P Drainage of perirectal abscess New Onset DM: A1c 11.1 Abx as per ID/Primary WBC improving ID consult noted BGM QACHS Levemir 22 units daily at HS Novolog SS coverage Abx mixed in NaCl today. Discussed with pt need to eat on time once he gets his Insulin to prevent hypoglycemia. Will F/U Problem List - Problems (1) Cellulitis Code(s): L03.90 - CELLULITIS, UNSPECIFIED (2) Diabetes Code(s): E11.9 - TYPE 2 DIABETES MELLITUS WITHOUT COMPLICATIONS
--- NOTE | 2017-07-29 10:29 | PN ---
Progress Note (short form) - Note Progress Note: Attending Surgeon POD #3 No c/o; doing sitz baths VSS AF wound-open and drained; induration persists but less; slight ttp IMP: doing well PLAN: LWC w/ BID sitz baths and dry dressing; stable surgically for d/c to follow in my office 7-10 days post op. Adelso Berkowitz MD FACS
[2017-07-29] MEDS: ENOXAPARIN NA (PORCINE) 40 MG/0.4 ML DISP.SYRIN SQ SCH (11:04)
[2017-07-29 14:22] VITALS: BP 139/88; PULSE 95; TEMP 97.6
--- NOTE | 2017-07-29 16:19 | PN ---
Physical Exam: SUBJECTIVE: Patient seen and examined at the bedside. He reports feeling better, denies any further episodes of purities, denies shortness of breath or discomfort. OBJECTIVE: Vital Signs Period Temp Pulse Resp BP Sys/Schuler Pulse Ox Last 24 Hr 97.6 F-98.7 F 81-104 18-18 133-139/72-94 97 GENERAL: The patient is awake, alert, and fully oriented, in no acute distress. HEAD: Normal with no signs of trauma. EYES: PERRL, extraocular movements intact, sclera anicteric, conjunctiva clear. No ptosis. ENT: Ears normal, nares patent, oropharynx clear without exudates, moist mucous membranes. NECK: Trachea midline, full range of motion, supple. ABDOMEN: Soft, nontender, nondistended, normoactive bowel sounds, no guarding, no rebound, no hepatosplenomegaly, no masses. EXTREMITIES: 2+ pulses, warm, well-perfused, no edema. NEUROLOGICAL: Normal speech, steady gait PSYCH: Normal mood, normal affect. SKIN: Left lower buttocks abcesss + pain, POD#3, dressing stained but intact - wound not to be packed. Patient states he will take care of wound on his own at home, refusing nursing care as per Laboratory Results - last 24 hr 07/28/17 07/28/17 07/28/17 11:49 16:56 22:26 WBC RBC Hgb Hct MCV MCH MCHC RDW Plt Count MPV Neutrophils % Lymphocytes % Monocytes % Eosinophils % Basophils % Sodium Potassium Chloride Carbon Dioxide Anion Gap BUN Creatinine Creat Clearance w eGFR POC Glucometer 162 143 157 Random Glucose Calcium Total Bilirubin AST ALT Alkaline Phosphatase Total Protein Albumin 07/29/17 07/29/17 07/29/17 06:08 06:45 06:45 WBC 7.6 RBC 4.46 Hgb 12.6 Hct 37.8 MCV 84.8 MCH 28.2 MCHC 33.2 RDW 12.7 Plt Count 287 MPV 8.6 Neutrophils % 60.0 Lymphocytes % 25.9 D Monocytes % 8.2 Eosinophils % 5.3 H Basophils % 0.6 Sodium 139 Potassium 3.8 Chloride 106 Carbon Dioxide 25 Anion Gap 8 BUN 10 D Creatinine 1.0 Creat Clearance w eGFR > 60 POC Glucometer 143 Random Glucose 140 H Calcium 9.0 Total Bilirubin 0.6 D AST 47 H ALT 61 Alkaline Phosphatase 80 Total Protein 7.2 Albumin 3.4 07/29/17 11:45 WBC RBC Hgb Hct MCV MCH MCHC RDW Plt Count MPV Neutrophils % Lymphocytes % Monocytes % Eosinophils % Basophils % Sodium Potassium Chloride Carbon Dioxide Anion Gap BUN Creatinine Creat Clearance w eGFR POC Glucometer 186 Random Glucose Calcium Total Bilirubin AST ALT Alkaline Phosphatase Total Protein Albumin Active Medications Generic Name Dose Route Start Last Admin Trade Name Freq PRN Reason Stop Dose Admin Acetaminophen 650 mg 07/26/17 12:54 07/27/17 06:56 Tylenol - PO 650 mg Q4H PRN Administration FEVER OR PAIN Diphenhydramine HCl 25 mg 07/27/17 14:30 07/29/17 14:57 Benadryl Injection - IVPB 25 mg BID@0230,1430 RAMONA Administration Diphenhydramine HCl 25 mg 07/28/17 11:57 Benadryl - PO Q6H PRN FOR ITCHING Docusate Sodium 100 mg 07/26/17 14:00 07/29/17 13:23 Colace - PO Not Given TID RAMONA Enoxaparin Sodium 40 mg 07/27/17 10:00 07/29/17 11:04 Lovenox - SQ 40 mg DAILY RAMONA Administration Hydrocortisone 1 applic 07/27/17 13:41 07/27/17 17:30 Hytone 1% Cream - TP 1 applic BID PRN Administration RASH Vancomycin HCl 1,250 mg/ 250 mls @ 125 mls/hr 07/28/17 15:00 07/29/17 15:23 Sodium Chloride IVPB 125 mls/hr BID@0300,1500 RAMONA Administration Piperacillin Sod/Tazobactam 100 mls @ 200 mls/hr 07/29/17 18:00 Sod 4.5 gm/ Sodium Chloride IVPB Q8H-IV RAMONA Insulin Aspart 1 vial 07/26/17 16:30 07/29/17 12:17 Novolog Vial Sliding Scale - SQ 10 units ACHS RAMONA Administration Protocol Insulin Detemir 22 units 07/26/17 22:00 07/28/17 22:29 Levemir Vial SQ 22 units HS RAMONA Administration Morphine Sulfate 4 mg 07/27/17 10:23 07/28/17 06:42 Morphine Injection - IVPUSH 4 mg Q6H PRN Administration PAIN Senna 2 tab 07/27/17 13:52 Senna - PO HS PRN CONSTIPATION ASSESSMENT/PLAN: Patient is a 31 year old male with no significant past medical history, other than childhood asthma, presented to the ER on 07/23/2017 with nausea, vomiting, fever, chills and left buttock pain x 3 days . Patient states that he was periodically getting "bumps" in his grown area that resolved previously with warm compresses. He attempted to treat this left buttock discomfort with warm compresses but without any relief. He denies any prior history of diabetes or hyperglycemia in the past. His blood glucose in the ED was 445. He was admitted on 07/23/2017 with newly diagnosed diabetes mellitus and left medial buttock abscess/cellulitis. Imaging: CT abd/pelvis 07/23/2017 - Subcutanous fat haziness at the infermedial left buttocks which likely reflects cellulitis, no abscess is seen. Ultrasound 07/24/2017: inflammatory/phlegmonous changes in the region of clinical concern of the medial inferior left buttocks - no damnable collection ID: Sepsis secondary to left medial buttock abscess/cellulitis/s/p an I&D - post op day #3 A/P: Wound culture with multiple organisms, sensitivities pending Tolerating Vancomycin at a slower infusion rate, but still needs to be premedicated with IV benadryl 1/2 hour prior WBC stable, afebrile, blood cultures negative Continue on Zosyn and Vancomycin (both started 07/25/2017), ID clearance pending before discharge Morphine for pain management Endocrine: Diabetes Mellitus - new diagnosis on this admission - blood sugars improving A/P: Hgb a1c 11.1, manager payer following BGMs, Novolog sliding scale, Levemir 22 units at bedtime Patient is receiving ongoing teaching on use of glucometer, insulin, monitoring BGMS and diabetic diet Will place it in detail on his discharge instructions Patient is receiving [facility] [place], RD following Diabetic diet Prophylaxis: DVT: Lovenox 40mg daily GI: colace, Protonix F.E.N. Fluids: Tolerates PO Electrolytes: monitor Nutrition: diabetic diet Disposition: Discharge once cleared by ID. Full code. t Visit type - Emergency Visit Emergency Visit: Yes ED Registration Date: 07/23/17 Care time: The patient presented to the Emergency Department on the above date and was hospitalized for further evaluation of their emergent condition. - New Patient This patient is new to me today: No - Critical Care Critical Care patient: No - Discharge Referral Referred to [facility] Med P.C[facility] Yes Physician Referral: Bari Talavera MD ([facility]), Carrie Gonzales MD (Fam Med) , Levon Mcneil MD (Int Med)
--- NOTE | 2017-07-29 16:25 | PN ---
Progress Note, Physician History of Present Illness: Doing well Pain-free Afebrile WBC WNL - Current Medication List Current Medications: Active Medications Acetaminophen (Tylenol -) 650 mg PO Q4H PRN PRN Reason: FEVER OR PAIN Last Admin: 07/27/17 06:56 Dose: 650 mg Diphenhydramine HCl (Benadryl Injection -) 25 mg IVPB BID@0230,1430 [facility] Last Admin: 07/29/17 14:57 Dose: 25 mg Diphenhydramine HCl (Benadryl -) 25 mg PO Q6H PRN PRN Reason: FOR ITCHING Docusate Sodium (Colace -) 100 mg PO TID [facility] Last Admin: 07/29/17 13:23 Dose: Not Given Enoxaparin Sodium (Lovenox -) 40 mg SQ DAILY [facility] Last Admin: 07/29/17 11:04 Dose: 40 mg Hydrocortisone (Hytone 1% Cream -) 1 applic TP BID PRN PRN Reason: RASH Last Admin: 07/27/17 17:30 Dose: 1 applic Insulin Aspart (Novolog Vial Sliding Scale -) 1 vial SQ ACHS [facility] PRN Reason: Protocol Last Admin: 07/29/17 12:17 Dose: 10 units Insulin Detemir (Levemir Vial) 22 units SQ HS [facility] Last Admin: 07/28/17 22:29 Dose: 22 units Levofloxacin (Levaquin -) 500 mg PO DAILY [facility] Metronidazole (Flagyl -) 500 mg PO TID [facility] Morphine Sulfate (Morphine Injection -) 4 mg IVPUSH Q6H PRN PRN Reason: PAIN Last Admin: 07/28/17 06:42 Dose: 4 mg Senna (Senna -) 2 tab PO HS PRN PRN Reason: CONSTIPATION - Objective Vital Signs: Vital Signs Temperature 97.6 F 07/29/17 14:21 Pulse Rate 95 H 07/29/17 14:21 Respiratory Rate 18 07/29/17 08:00 Blood Pressure 139/88 07/29/17 14:21 O2 Sat by Pulse Oximetry (%) 97 07/29/17 09:00 Constitutional: Yes: Obese Cardiovascular: Yes: Regular Rate and Rhythm, S1, S2 Respiratory: Yes: CTA Bilaterally Gastrointestinal: Yes: Normal Bowel Sounds, Soft, Abdomen, Obese. 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
[2017-07-29] MEDS ORDERED: LEVOFLOXACIN 500 MG TABLET (FP) PO SCH (16:30)
--- NOTE | 2017-07-29 17:12 | DS ---
Physical Exam: SUBJECTIVE: Patient seen and examined OBJECTIVE: For discharge today Patient has demonstrated the ability to monitor his blood sugars, inject insulin and verbalized need for weight loss and has demonstrated how to use a sliding scale. Discharge home with close surgical and sales performance manager follow up. All medications confirmed with pharmacy and they acknowledge receiving same. Vital Signs Period Temp Pulse Resp BP Sys/Schuler Pulse Ox Last 24 Hr 97.6 F-98.7 F 81-104 18-18 133-139/72-94 97 PHYSICAL EXAM GENERAL: The patient is awake, alert, and fully oriented, in no acute distress. HEAD: Normal with no signs of trauma. EYES: PERRL, extraocular movements intact, sclera anicteric, conjunctiva clear. No ptosis. ENT: Ears normal, nares patent, oropharynx clear without exudates, moist mucous membranes. NECK: Trachea midline, full range of motion, supple. ABDOMEN: Soft, nontender, nondistended, normoactive bowel sounds, no guarding, no rebound, no hepatosplenomegaly, no masses. EXTREMITIES: 2+ pulses, warm, well-perfused, no edema. NEUROLOGICAL: Normal speech, steady gait PSYCH: Normal mood, normal affect. SKIN: Left lower buttocks abcesss + pain, POD#3, dressing stained but intact - wound not to be packed. Patient states he will take care of wound on his own at home, refusing nursing care as per SW LABS Laboratory Results - last 24 hr 07/28/17 07/28/17 07/28/17 11:49 16:56 22:26 WBC RBC Hgb Hct MCV MCH MCHC RDW Plt Count MPV Neutrophils % Lymphocytes % Monocytes % Eosinophils % Basophils % Sodium Potassium Chloride Carbon Dioxide Anion Gap BUN Creatinine Creat Clearance w eGFR POC Glucometer 162 143 157 Random Glucose Calcium Total Bilirubin AST ALT Alkaline Phosphatase Total Protein Albumin 07/29/17 07/29/17 07/29/17 06:08 06:45 06:45 WBC 7.6 RBC 4.46 Hgb 12.6 Hct 37.8 MCV 84.8 MCH 28.2 MCHC 33.2 RDW 12.7 Plt Count 287 MPV 8.6 Neutrophils % 60.0 Lymphocytes % 25.9 D Monocytes % 8.2 Eosinophils % 5.3 H Basophils % 0.6 Sodium 139 Potassium 3.8 Chloride 106 Carbon Dioxide 25 Anion Gap 8 BUN 10 D Creatinine 1.0 Creat Clearance w eGFR > 60 POC Glucometer 143 Random Glucose 140 H Calcium 9.0 Total Bilirubin 0.6 D AST 47 H ALT 61 Alkaline Phosphatase 80 Total Protein 7.2 Albumin 3.4 07/29/17 07/29/17 11:45 16:17 WBC RBC Hgb Hct MCV MCH MCHC RDW Plt Count MPV Neutrophils % Lymphocytes % Monocytes % Eosinophils % Basophils % Sodium Potassium Chloride Carbon Dioxide Anion Gap BUN Creatinine Creat Clearance w eGFR POC Glucometer 186 126 Random Glucose Calcium Total Bilirubin AST ALT Alkaline Phosphatase Total Protein Albumin HOSPITAL COURSE: Date of Admission:07/23/17 Date of Discharge: 07/29/17 ASSESSMENT/PLAN: Patient is a 31 year old male with no significant past medical history, other than childhood asthma, presented to the ER on 07/23/2017 with nausea, vomiting, fever, chills and left buttock pain x 3 days . Patient states that he was periodically getting "bumps" in his grown area that resolved previously with warm compresses. He attempted to treat this left buttock discomfort with warm compresses but without any relief. He denies any prior history of diabetes or hyperglycemia in the past. His blood glucose in the ED was 445. He was admitted on 07/23/2017 with newly diagnosed diabetes mellitus and left medial buttock abscess/cellulitis. Imaging: CT abd/pelvis 07/23/2017 - Subcutanous fat haziness at the infermedial left buttocks which likely reflects cellulitis, no abscess is seen. Ultrasound 07/24/2017: inflammatory/phlegmonous changes in the region of clinical concern of the medial inferior left buttocks - no damnable collection ID: Sepsis secondary to left medial buttock abscess/cellulitis/s/p an I&D - post op day #3 A/P: Wound culture with multiple organisms WBC stable, afebrile, blood cultures negative Cleared by ID, will continue Flagyl 500mg TID and Levaquin for 7 more days Oxycodone for pain management but patient encouraged to try Tylenol first. Surgery follow up in 7 days upon discharge Endocrine: Diabetes Mellitus - new diagnosis on this admission - blood sugars improving A/P: Hgb a1c 11.1, sales performance manager following BGMs, Novolog sliding scale, Levemir 22 units at bedtime Patient is receiving ongoing teaching on use of glucometer, insulin, monitoring BGMS and diabetic diet Will place it in detail on his discharge instructions Patient is receiving [facility] nutrition education, RD following Diabetic diet Endocrinology follow up as an outpatient. Disposition: Discharge home with close follow up with sales performance manager, surgery and primary care physician. Full code. t Minutes to complete discharge: 60 Discharge Summary Reason For Visit: DIABETES CELLULITIS Current Active Problems Cellulitis (Acute) Diabetes (Acute) Condition: Improved - Instructions Diet, Activity, Other Instructions: Mr. Bishop: You were admitted to [facility] on 07/23/2017 with a left buttock tissue wound as well as diabetes mellitus. You had an incision and drainage procedure during your hospital stay and Dr. Berkowitz performed your surgical procedure. Please continue the Sitz baths as well as maintaining the dressing on this site dry and clean at all times. Please apply sterile dressings that will be given to you before discharge. Please make an appointment to follow up with Dr. Berkowitz in his office within 1 week after discharge. Blood sugars sliding scale Please test your sugars three times per day before meals and again at bedtime. If your sugar is BETWEEN: Take this much NOVOLOG 101 - 150 8 151 - 200 10 201 - 250 12 251 - 300 14 301 - 350 16 351 - 400 18 GREATER THAN 400 TAKE 18 UNITS AND CALL YOUR PRIMARY CARE PHYSICIAN. Levemir 22 units at bedtime. If your sugars are greater than 400, take Novolog as indicated above, then repeat you blood sugar in 15 minutes. It is very important that you keep a log of your blood sugars at home so that you can present this log to your new primary care doctor and the sales performance manager. They may adjust your insulin based on your blood sugars. YOU ARE NOT CLEARED TO RETURN TO WORK UNTIL AFTER YOU SEE THE SURGEON AND HE CLEARS YOU. If you have questions, please call me at [phone] Rebecca Silva Richter [facility] Referrals: Adelso Berkowitz MD [Staff Physician] - 1 Week Bari Santiago MD [Staff Physician] - 1 Week Carrie Gonzales MD [Staff Physician] - 1 Week Dorys Rosenbaum MD [Staff Physician] - 1 Week Disposition: HOME - Home Medications Comprehensive Discharge Medication List: Ambulatory Orders Miscellaneous Medical Supply [Glucometer Device] 1 each SQ ASDIR #1 kit Miscellaneous Medical Supply [Glucometer Test Strips #100] 1 each SQ ASDIR #1 box 07/25/17 Alcohol Antiseptic Pads [Caretouch Alcohol Prep Pad] 1 each TP ACHS #1 box 07/29 Hydrocortisone 1% Cream [Hytone 1% Cream -] 1 applic TP BID PRN #0 tube Insulin (Levemir) [Levemir Flexpen -] 22 units SQ HS #1 pen 07/29/17 Insulin Aspart [Novolog Flexpen] 4 unit SQ ACHS #7 insuln.pen 07/29/17 Levofloxacin [Levaquin -] 500 mg PO DAILY@0600 #7 tablet 07/29/17 Metronidazole [Flagyl -] 500 mg PO TID #20 tablet 07/29/17 Miscellaneous Medical Supply [Glucometer Device] 1 each SQ ASDIR #1 kit Miscellaneous Medical Supply [Glucometer Test Strips #100] 1 each SQ ASDIR #1 box 07/29/17 Oxycodone HCl/Acetaminophen [Percocet 5-325 mg Tablet] 1 tab PO BID PRN #7 tablet MDD 2 tabs 07/29/17 Pen Needle, Diabetic [Kellogg] 1 each MC DAILY #120 dis.needle 07/29/17 Sennosides [Senna -] 2 tab PO HS PRN #0 tablet 07/29/17 This patient is new to me today: No Emergency Visit: Yes ED Registration Date: 07/23/17 Care time: The patient presented to the Emergency Department on the above date and was hospitalized for further evaluation of their emergent condition. Critical Care patient: No - Discharge Referral Referred to [facility] Med P.C.: Yes Physician Referral: Bari Talavera MD (Fam Med), Carrie Gonzales MD (Fam Med) , Levon Mcneil MD (Int Med)
[2017-07-29] MEDS ORDERED: PNEUMOC 13-VAL CONJ-DIP CRM/PF 0.5 ML DISP.SYRIN IM ONE (17:36)
[2017-07-29] MEDS ORDERED: PIPERACILLIN/TAZOB 4.5 GM 4.5 GM in SODIUM CHLORIDE 100 ML IVPB SCH (18:00)
[2017-07-29] MEDS ORDERED: FLU VACCINE QUAD 60 MCG/0.5 ML (MDV 17-18) IM ONE (18:15)
[2017-07-29] MEDS ORDERED: PNEUMOCOCCAL 23 VACCINE 0.5 ML VIAL IM ONE (19:00)
[2017-07-29] MEDS ORDERED: metroNIDAZOLE 250 MG TABLET PO SCH (22:00)
== END 2017-07-29 19:00 | disposition home or self-care (01) | DRG 602 ==
LOC: JER 00:32 → JERBED 06:05 → UNDOADMIN 06:09 → JERBED 06:09 → J5S 07:42
PROVIDERS: ADMIT Internal Medicine; ATTEND Nurse Practitioner Family
PROC: 0J993ZX Drainage of Buttock Subcutaneous Tissue and Fascia, Percutaneous Approach, Diagnostic (ICD-10-PCS; principal; 2017-07-26 12:45)
DX: L02.215 Cutaneous abscess of perineum (principal); A41.9 Sepsis, unspecified organism; R65.20 Severe sepsis without septic shock; E87.1 Hypo-osmolality and hyponatremia; E87.2 Acidosis; F17.210 Nicotine dependence, cigarettes, uncomplicated; E11.65 Type 2 diabetes mellitus with hyperglycemia
CPT/HCPCS: 36415; 74177-TC; 76882; 80048; 80053; 81003; 81015; 82009; 83036; 83605; 83690; 83735; 84100; 85025; 86140; 87040; 87070; 87077; 87186; 87205; 90688; 90732; 93005; 93010; 94760; 99283-25; G0008; G0009; G0480

== ENCOUNTER 2018-09-21 02:16 | Emergency (ER) | payer BC ==
[2018-09-21 02:42] VITALS: TEMP 98.8; BMI 36.8
--- NOTE | 2018-09-21 03:01 | PDOC ---
History of Present Illness - General Chief Complaint: Cold Symptoms Stated Complaint: DIFF BREATHING Time Seen by Provider: 09/21/18 02:42 - History of Present Illness Initial Comments: 09/21/18 03:06 Mr. Bishop is a 32 yo male w/ pmh of IDDM and asthma (mostly resolved from childhood) who presents for evaluation of facial pain with difficulty breathing earlier this evening. Patient reports he woke from sleep with these symptoms although he was feeling his normal self upon going to bed. Patient became concerned and used a rescue inhaler he has for asthma exacerbation; elected to present to ER. Patient reports he also had copious mucous that was initially thick however is now clear. Reports facial pain has improved as well. The patient denies chest pain and dizziness. Denies fever, chills, nausea, vomit , diarrhea and constipation. Denies dysuria, frequency, urgency and hematuria. Allergies: Seasonal / dust mites Past History - Past Medical History Allergies/Adverse Reactions: Allergies Allergy/AdvReac Type Severity Reaction Status Date / Time No Known Allergies Allergy Verified 09/21/18 02:42 Home Medications: Ambulatory Orders Insulin (Levemir) [Levemir Flexpen -] 22 units SQ HS #1 pen 07/29/17 Insulin Aspart [Novolog Flexpen] 4 unit SQ ACHS #7 insuln.pen 07/29/17 Albuterol 0.083% Nebulizer Brianne [Ventolin 0.083% Nebulizer Soln -] 1 neb NEB Q4H PRN #20 vial 09/21/18 Loratadine/Pseudoephedrine [Loratadine-D 24Hr Tablet] 1 each PO DAILY PRN #7 tab.er.24h 09/21/18 Asthma: Yes - Immunization History Immunization Up to Date: No - Suicide/Smoking/Psychosocial Hx Smoking Status: No Smoking History: Never smoked Have you smoked in the past 12 months: No Number of Cigarettes Smoked Daily: 3 Information on smoking cessation initiated: No 'Breaking Loose' booklet given: 07/23/17 Hx Alcohol Use: No Drug/Substance Use Hx: No Substance Use Type: None Review of Systems - Review of Systems Comments:: 09/21/18 03:17 GENERAL/CONSTITUTIONAL: No fever or chills. No weakness. HEAD, EYES, EARS, NOSE AND THROAT: +Facial pain as described. No change in vision. No ear pain or discharge. No sore throat. CARDIOVASCULAR: +SOB as described. No chest pain RESPIRATORY: No cough, wheezing, or hemoptysis. GASTROINTESTINAL: No nausea, vomiting, diarrhea or constipation. GENITOURINARY: No dysuria, frequency, or change in urination. MUSCULOSKELETAL: No joint or muscle swelling or pain. No neck or back pain. SKIN: No rash NEUROLOGIC: No headache, vertigo, loss of consciousness, or change in strength/ sensation. ENDOCRINE: No increased thirst. No abnormal weight change HEMATOLOGIC/LYMPHATIC: No anemia, easy bleeding, or history of blood clots. ALLERGIC/IMMUNOLOGIC: No hives or skin allergy. *Physical Exam - Vital Signs Last Vital Signs Temp Pulse Resp BP Pulse Ox 98.8 F 98 H 22 H 148/94 96 09/21/18 02:20 09/21/18 02:20 09/21/18 02:20 09/21/18 02:20 09/21/18 02:20 - Physical Exam Comments: 09/21/18 03:23 GENERAL: Awake, alert, and fully oriented, in no acute distress HEAD: No signs of trauma, normocephalic, atraumatic EYES: +Conjunctiva injected, eyes swollen. PERRLA, EOMI, sclera anicteric ENT: Auricles normal inspection, hearing grossly normal, nares patent, oropharynx clear without exudates. Moist mucosa NECK: Normal ROM, supple, no lymphadenopathy, JVD, or masses LUNGS: No distress, speaks full sentences, clear to auscultation bilaterally HEART: Regular rate and rhythm, normal S1 and S2, no murmurs, rubs or gallops, peripheral pulses normal and equal bilaterally. ABDOMEN: Soft, nontender, normoactive bowel sounds. No guarding, no rebound. No masses EXTREMITIES: Normal inspection, Normal range of motion, no edema. No clubbing or cyanosis. NEUROLOGICAL: Cranial nerves II through XII grossly intact. Normal speech, normal gait, no focal sensorimotor deficits SKIN: Warm, Dry, normal turgor, no rashes or lesions noted. ED Treatment Course - LABORATORY CBC & Chemistry Diagram: 09/21/18 03:50 09/21/18 03:50 Medical Decision Making - Medical Decision Making 09/21/18 03:24 Mr. Bishop is a 32 yo male w/ pmh as described who presents for evaluation of symptoms c/w allergic reaction / cold symptoms. Will provide breathing treatment and motrin for symptomatic relief and check BGM and influenza. 09/21/18 03:29 BGM noted to be 442. Additional labs ordered as below for further evaluation. Hydration started as well. 09/21/18 05:12 Patient labs as below significant for elevated blood glucose and trace acetone w /out abnormal gap. Will hydrate patient for suspected dehydration and repeat BGM. Laboratory Results - last 24 hr 09/21/18 09/21/18 09/21/18 03:25 03:50 03:50 WBC 7.7 RBC 5.01 Hgb 14.6 Hct 41.6 MCV 83.2 MCH 29.1 MCHC 35.0 RDW 13.3 Plt Count 240 MPV 9.5 D Absolute Neuts (auto) 3.0 Neutrophils % 38.9 L D Lymphocytes % 53.4 H D Monocytes % 5.4 Eosinophils % 1.6 Basophils % 0.7 Nucleated RBC % 0 Sodium 134 L Potassium 4.1 Chloride 98 Carbon Dioxide 25 Anion Gap 11 BUN 14 Creatinine 1.0 Creat Clearance w eGFR > 60 POC Glucometer > 400 Random Glucose 435 H* Calcium 8.8 Total Bilirubin 0.4 AST 33 ALT 50 Alkaline Phosphatase 93 Total Protein 7.6 Albumin 3.8 Acetone, Qual 09/21/18 03:50 WBC RBC Hgb Hct MCV MCH MCHC RDW Plt Count MPV Absolute Neuts (auto) Neutrophils % Lymphocytes % Monocytes % Eosinophils % Basophils % Nucleated RBC % Sodium Potassium Chloride Carbon Dioxide Anion Gap BUN Creatinine Creat Clearance w eGFR POC Glucometer Random Glucose Calcium Total Bilirubin AST ALT Alkaline Phosphatase Total Protein Albumin Acetone, Qual Positive small 1+ 09/21/18 06:23 Patient reportedly feeling better. Repeat BGM 367 after hydration. Will d/c w/ loratadine Rx and nebulizer albuterol solutions for home treatment. No concern for acute process at this time. Discharging to home. *DC/Admit/Observation/Transfer Diagnosis at time of Disposition: Hyperglycemia Allergic symptoms Qualifiers: Encounter type: initial encounter Qualified Code(s): T78.40XA - Allergy, unspecified, initial encounter - Discharge Dispostion Disposition: HOME Condition at time of disposition: Fair - Prescriptions Prescriptions: Albuterol 0.083% Nebulizer Brianne [Ventolin 0.083% Nebulizer Soln -] 1 neb NEB Q4H PRN #20 vial PRN Reason: Wheezing Loratadine/Pseudoephedrine [Loratadine-D 24Hr Tablet] 1 each PO DAILY PRN #7 tab.er.24h PRN Reason: Short Of Breath/Wheezing - Referrals - Patient Instructions Printed Discharge Instructions: Localized Air Filtration and Pillow Encasement May Reduce Allergy Symptoms Additional Instructions: You were evaluated today in the ER for your symptoms. No concerning findings were found at this time and your symptoms improved with allergy medication ( loratadine). We have sent prescriptions to your pharmacy for more loratadine for use as needed as well as nebulizer solutions. Your blood sugar was also very elevated however this improved with hydration. Be sure to check blood sugar as instructed by your primary care physician and treat accordingly. Take all medications as proscribed. Return to ER if any return of shortness of breath , fever, chills, pain, or other concerning symptoms. - Post Discharge Activity
[2018-09-21] MEDS ORDERED: ALBUTEROL SO4 2.5/IPRATROPIUM 0.5 INH SOL 3 ML VIAL.NEB. NEB ONE ×2 (03:06→03:45)
[2018-09-21] MEDS ORDERED: IBUPROFEN 400 MG TABLET (FP) PO ONE ×2 (03:07→03:45)
[2018-09-21] MEDS ORDERED: SODIUM CHLORIDE 1,000 ML IV STA ×2 (03:28→05:12)
[2018-09-21] MEDS ORDERED: LORATADINE 10 MG TABLET PO ONE (03:58)
[2018-09-21 04:09] LABS: BASO % 0.7 % (0-2.0); EOS % 1.6 % (0-4.5); HEMATOCRIT 41.6 % (35.4-49); HEMOGLOBIN 14.6 GM/dL (11.7-16.9); LYMPH % 53.4 % (8-40); MCH 29.1 pg (25.7-33.7); MEAN CELL VOLUME 83.2 fl (80-96); MEAN PLT VOLUME 9.5 fl (7.5-11.1); MONO % 5.4 % (3.8-10.2); NEUT % 38.9 % (42.8-82.8); PLATELET COUNT 240 K/MM3 (134-434); RBC 5.01 M/mm3 (4.00-5.60); RDW 13.3 % (11.9-15.9); WHITE BLOOD COUNT 7.7 K/mm3 (4.0-10.0)
--- NOTE | 2018-09-21 04:38 | PDOC ---
Attending Attestation - HPI HPI: 09/21/18 04:50 The patient is a 32 year old male with a significant PMH of diabetes and asthma who presents to the emergency department with difficulty breathing since earlier this morning. The patient reports that he was at home sleeping when he woke up out of his sleep with difficulty breathing. The patient reports that he was feeling okay when he went to sleep earlier in the evening. He states that he has experienced a feeling like this is the past secondary to his seasonal allergies. The patient endorses some facial swelling and blood per nasal mucous. The patient denies any sick contact, recent travel. He denies any fever chills nausea, vomiting diarrhea constipation or urinary symptoms. He denies any chest pain, headache or dizziness. The patient denies any other complaints. - Physicial Exam PE: 09/21/18 04:50 GENERAL: Awake, alert, and fully oriented, in no acute distress HEAD: No signs of trauma LUNGS: Breath sounds equal, clear to auscultation bilaterally. No wheezes, and no crackles HEART: Regular rate and rhythm, normal S1 and S2, no murmurs, rubs or gallops ABDOMEN: obese. Soft, nontender, normoactive bowel sounds. No guarding, no rebound. No masses EXTREMITIES: Normal range of motion, no edema. No clubbing or cyanosis. No cords, erythema, or tenderness NEUROLOGICAL: Cranial nerves II through XII grossly intact. Normal speech, normal gait SKIN: Warm, Dry, normal turgor, no rashes or lesions noted. Documentation prepared by Tamar Harrison, acting as emergency medical service manager for Randal Gomes MD. <Tamar Harrison - Last Filed: 09/21/18 04:50> - Resident Resident Name: Jeronimo Steve - ED Attending Attestation I have performed the following: I have examined & evaluated the patient, The case was reviewed & discussed with the resident, I agree w/resident's findings & plan, Exceptions are as noted - Medical Decision Making 09/21/18 05:12 A portion of this note was documented by scribe services under my direction. I have reviewed the details of the note, within reason, and agree with the documentation with the following case summary and management plan written by me. Patient treated in the ED. Nursing notes are reviewed and incorporated into the medical decision-making. Vital signs reviewed. Peripheral IV access obtained by the nurse, laboratory studies are drawn and sent, reviewed and interpreted by myself. Vital Signs Temp Pulse Resp BP Pulse Ox 98.8 F 98 H 22 H 148/94 96 09/21/18 02:20 09/21/18 02:20 09/21/18 02:20 09/21/18 02:20 09/21/18 02:20 32-year-old male with history of diabetes, asthma, obesity presents with rhinorrhea and nasal congestion. The patient reported yesterday that he felt well. Woke up the bowl night with nasal stuffiness and difficulty breathing. Patient reports that he feels like he is having some seasonal ALLERGIES as well. No coughing or chest pain or shortness of breath. No fevers or chills. Patient stated that he's developing some frontal sinus pressure like sensation. The squeezing like sensation as well. The patient of the ER. Patient also reports that he may not always be the most adherent to his medications including his diabetes medications. I suspect the patient may either have viral syndrome versus seasonal ALLERGIES versus viral sinusitis. He is otherwise well-appearing. Patient's glucose is elevated which I suspect is likely secondary to nonadherence. We'll encourage patient to continue taking his medications follow-up with his primary care physician. Patient doctor's no elevated anion gap despite slightly elevated serum ketones. We'll give IV fluids and bring the glucose down and discharge patient with claritin. 09/21/18 06:30 CBC, BMP 09/21/18 03:50 09/21/18 03:50 CMP Sodium 134 mmol/L (136-145) L 09/21/18 03:50 Potassium 4.1 mmol/L (3.5-5.1) 09/21/18 03:50 Chloride 98 mmol/L (98-107) 09/21/18 03:50 Carbon Dioxide 25 mmol/L (21-32) 09/21/18 03:50 Anion Gap 11 MMOL/L (8-16) 09/21/18 03:50 BUN 14 mg/dL (7-18) 09/21/18 03:50 Creatinine 1.0 mg/dL (0.55-1.3) 09/21/18 03:50 Creat Clearance w eGFR > 60 (>60) 09/21/18 03:50 POC Glucometer > 400 UNITS (80-120) 09/21/18 03:25 Random Glucose 435 mg/dL (74-106) H* 09/21/18 03:50 Calcium 8.8 mg/dL (8.5-10.1) 09/21/18 03:50 Total Bilirubin 0.4 mg/dL (0.2-1) 09/21/18 03:50 AST 33 U/L (15-37) 09/21/18 03:50 ALT 50 U/L (13-61) 09/21/18 03:50 Alkaline Phosphatase 93 U/L (45-117) 09/21/18 03:50 Total Protein 7.6 g/dl (6.4-8.2) 09/21/18 03:50 Albumin 3.8 g/dl (3.4-5.0) 09/21/18 03:50 Urine Test Results Urine Color Straw 09/21/18 05:20 Urine Appearance Clear 09/21/18 05:20 Urine pH 6.0 (5.0-8.0) 09/21/18 05:20 Ur Specific [place] 1.031 (1.010-1.035) 09/21/18 05:20 Urine Protein 2+ (NEGATIVE) H 09/21/18 05:20 Urine Glucose (UA) 3+ (NEGATIVE) H 09/21/18 05:20 Urine Ketones Trace (NEGATIVE) H 09/21/18 05:20 Urine Blood Negative (NEGATIVE) 09/21/18 05:20 Urine Nitrite Negative (NEGATIVE) 09/21/18 05:20 Urine Bilirubin Negative (<2.0 mg/dL) 09/21/18 05:20 Ur Leukocyte Esterase Negative (NEGATIVE) 09/21/18 05:20 Ur Epithelial Cells Rare /HPF (FEW) 09/21/18 05:20 <Randal Gomes - Last Filed: 09/21/18 06:30>
[2018-09-21] MEDS ORDERED: LORATADINE 10 MG TABLET ONE (04:48)
[2018-09-21 05:02] LABS: ALBUMIN 3.8 g/dl (3.4-5.0); ALK PHOS 93 U/L (45-117); ANION GAP 11 MMOL/L (8-16); BILIRUBIN,TOTAL 0.4 mg/dL (0.2-1); BLOOD UREA NITROGEN 14 mg/dL (7-18); CALCIUM 8.8 mg/dL (8.5-10.1); CHLORIDE 98 mmol/L (98-107); CO2 25 mmol/L (21-32); POTASSIUM 4.1 mmol/L (3.5-5.1); SGOT/AST 33 U/L (15-37); SGPT/ALT 50 U/L (13-61); SODIUM 134 mmol/L (136-145); TOT PROT 7.6 g/dl (6.4-8.2)
[2018-09-21 05:07] LABS: GLUCOSE,RANDOM 435 mg/dL (74-106)
[2018-09-21 05:37] LABS: URINE APPEARANCE CLEAR; URINE BILIRUBIN NEGATIVE (<2.0 mg/dL); URINE COLOR STRAW; URINE GLUCOSE (UA) 3+ (NEGATIVE); URINE KETONE TRACE (NEGATIVE); URINE LEUK ESTERASE NEGATIVE (NEGATIVE); URINE NITRITE NEGATIVE (NEGATIVE); URINE PROTEIN 2+ (NEGATIVE); URINE UROBILINOGEN NEGATIVE mg/dL (0.2-1.0)
[2018-09-21 05:59] LABS: EPI CELLS RARE /HPF (FEW)
[2018-09-21 06:23] VITALS: BP 131/73; PULSE 92
== END 2018-09-21 06:42 | disposition home or self-care (01) ==
LOC: JER 02:16
PROC: 3E0F7GC Introduction of Other Therapeutic Substance into Respiratory Tract, Via Natural or Artificial Opening (ICD-10-PCS; principal; 2018-09-21)
PROC: 3E0337Z Introduction of Electrolytic and Water Balance Substance into Peripheral Vein, Percutaneous Approach (ICD-10-PCS; 2018-09-21)
DX: E10.65 Type 1 diabetes mellitus with hyperglycemia (principal); Z79.4 Long term (current) use of insulin; J30.9 Allergic rhinitis, unspecified
CPT/HCPCS: 36415; 80053; 81003; 81015; 82009; 82962; 85025; 87086; 87804; 99281-25; J7030

== ENCOUNTER 2020-01-06 17:53 | Emergency (ER) | payer BC ==
[2020-01-06 18:00] VITALS: BP 161/90; PULSE 102; TEMP 98.3; BMI 34.9
[2020-01-06] MEDS ORDERED: ALBUTEROL SO4 2.5/IPRATROPIUM 0.5 INH SOL 3 ML VIAL.NEB. NEB ONE ×2 (18:09→18:10)
[2020-01-06] MEDS ORDERED: DEXAMETHASONE LIQUID 0.5 MG/5 ML PO ONE (18:09)
[2020-01-06] MEDS ORDERED: DEXAMETHASONE SOD PHOSPHATE 10 MG/1 ML VIAL ONE (18:10)
--- NOTE | 2020-01-06 18:16 | PDOC ---
History of Present Illness - General Chief Complaint: Respiratory Stated Complaint: DIFFICULTY BREATHING Time Seen by Provider: 01/06/20 18:01 History Source: Patient Exam Limitations: Clinical Condition - History of Present Illness Initial Comments: 01/06/20 18:10 Patient with past medical history of diabetes and asthma presented with complaint of 2 days history of nasal congestion, intermittent cough and wheezing and now with chest tightness since this afternoon. Patient reported running out of her home nebulizer solution possible. Patient reported he gets similar sympt oms at the time of the year every year. Denies fever, nausea, vomiting, sore throat, chest pain, palpitation. Denies any other symptoms. Patient did not take anything for symptoms Is this a multiple visit Asthma Patient?: No Timing/Duration: momentarily Past History - Past Medical History Allergies/Adverse Reactions: Allergies Allergy/AdvReac Type Severity Reaction Status Date / Time No Known Allergies Allergy Verified 01/06/20 17:56 Home Medications: Ambulatory Orders Insulin (Levemir) [Levemir Flexpen -] 22 units SQ HS #1 pen 07/29/17 Insulin Aspart [Novolog Flexpen] 4 unit SQ ACHS #7 insuln.pen 07/29/17 Loratadine/Pseudoephedrine [Loratadine-D 24Hr Tablet] 1 each PO DAILY PRN #7 tab.er.24h 09/21/18 Albuterol 0.083% Nebulizer Brianne [Ventolin 0.083% Nebulizer Soln -] 1 neb NEB Q4H PRN #20 vial 01/06/20 Benzonatate [Tessalon Pearls -] 100 mg PO Q8H PRN #16 capsule 01/06/20 Ipratropium Franklin 2 spray NS BID PRN 5 Days #1 spray 01/06/20 Montelukast Na [Singulair -] 10 mg PO HS #7 tablet 01/06/20 Asthma: Yes COPD: No Disorders: No HTN: No Kidney Stones: No - Immunization History Immunization Up to Date: No - Psycho Social/Smoking Cessation Hx Smoking Status: No Smoking History: Never smoked Have you smoked in the past 12 months: No Number of Cigarettes Smoked Daily: 3 'Breaking Loose' booklet given: 07/23/17 Hx Alcohol Use: No Drug/Substance Use Hx: No Substance Use Type: None Review of Systems - Review of Systems Able to Perform ROS?: Yes Is the patient limited Wallisian proficient: No Constitutional: No: Chills, Fever, Malaise HEENTM: Yes: Symptoms Reported, See HPI, Nose Congestion. No: Eye Pain, Blurred Vision, Tearing, Recent change in vision, Double Vision, Cataracts, Ear Pain, O cular Prothesis, Ear Discharge, Nose Pain, Tinnitus, Nose Bleeding, Hearing Loss, Throat Pain, Throat Swelling, Mouth Pain, Dental Problems, Difficulty Swallowing, Mouth Swelling, Other Respiratory: Yes: Symptoms reported, See HPI, Cough, Shortness of Breath (intermittent), Wheezing (intermittent). No: Orthopnea, SOB with Exertion, SOB at Rest, Stridor, Productive cough, Hemoptysis, Other Cardiac (ROS): Yes: Symptoms Reported, See HPI, Chest Tightness (intermittent). No: Chest Pain, Edema, Irregular Heart Rate, Lightheadedness, Palpitations, Syncope, Other ABD/GI: No: Symptoms Reported, Nausea, Vomiting All Other Systems: Reviewed and Negative *Physical Exam - Vital Signs Last Vital Signs Temp Pulse Resp BP Pulse Ox 98.3 F 102 H 18 161/90 98 01/06/20 17:56 01/06/20 17:56 01/06/20 17:56 01/06/20 17:56 01/06/20 17:56 - Physical Exam 01/06/20 18:14 GENERAL: Well developed, well nourished. Awake and alert. No acute distress. HEENT: Bilateral nasal congestion. Normocephalic, atraumatic. PERRLA, EOMI. No conjunctival pallor. Sclera are non-icteric. Moist mucous membranes. Oropharynx is clear. NECK: Supple. Full ROM. CARDIOVASCULAR: Regular rate and rhythm. No murmurs, rubs, or gallops. Distal pulses are 2+ and symmetric. PULMONARY: No evidence of respiratory distress. Lungs clear to auscultation bilaterally. No wheezing, rales or rhonchi. ABDOMINAL: Soft. Non-tender. Non-distended. No rebound or guarding. No organomegaly. Normoactive bowel sounds. MUSCULOSKELETAL Normal range of motion at all joints. SKIN: Warm and dry. Normal capillary refill. No rashes. No cyanosis. NEUROLOGICAL: Alert, awake, appropriate. Gait is normal without ataxia. PSYCHIATRIC: Cooperative. Good eye contact. Appropriate mood General Appearance: Yes: Nourished, Appropriately Dressed. No: Apparent Distress Medical Decision Making - Medical Decision Making 01/06/20 18:11 Patient with past medical history of diabetes and asthma presented with complaint of 2 days history of nasal congestion, intermittent cough and wheezing and now with chest tightness since this afternoon. Patient reported running out of her home nebulizer solution possible. Patient reported he gets similar symptoms at the time of the year every year. Denies fever, nausea, vomiting, sore throat, chest pain, palpitation. Denies any other symptoms. Patient did not take anything for symptoms Clinical exam unremarkable with lungs clear to auscultation bilateral. Patient in no acute distress. Bilateral nasal congestion on exam. Given patient with complaint of bronchospasm, will do DuoNeb treatment and Decadron 10 mg p.o. for bronchospasm. Reassess after treatment 01/06/20 18:38 Patient with improvement of chest tightness post DuoNeb and Decadron treatment. Patient stable for outpatient management on home albuterol nebulizer inhaler as needed for asthma, Tessalon Perles as needed for cough and Atrovent nasal spray for nasal congestion with advised to increase fluid intake with PCP follow-up Discharge - Discharge Information Problems reviewed: Yes Clinical Impression/Diagnosis: URI with cough and congestion, Bronchospasm, acute Asthma Qualifiers: Asthma severity: mild Asthma persistence: intermittent Asthma complication type: with acute exacerbation Qualified Code(s): J45.21 - Mild intermittent asthma with (acute) exacerbation Condition: Improved Disposition: HOME - Admission No - Additional Discharge Information Prescriptions: Ipratropium Franklin 2 spray NS BID PRN 5 Days #1 spray PRN Reason: nasal congestion Montelukast Na [Singulair -] 10 mg PO HS #7 tablet Benzonatate [Tessalon Pearls -] 100 mg PO Q8H PRN #16 capsule PRN Reason: Cough Albuterol 0.083% Nebulizer Brianne [Ventolin 0.083% Nebulizer Soln -] 1 neb NEB Q4H PRN #20 vial PRN Reason: Wheezing - Follow up/Referral - Patient Discharge Instructions Patient Printed Discharge Instructions: DI for Asthma -- Adult, DI for Viral Upper Respiratory Infection -- Adult Additional Instructions: Take prescribed medication as prescribed for cough and congestion. Increase fluid intake. Follow-up with primary care as needed - Post Discharge Activity
== END 2020-01-06 18:51 | disposition home or self-care (01) ==
LOC: JERFT 17:53
PROC: 3E0F7GC Introduction of Other Therapeutic Substance into Respiratory Tract, Via Natural or Artificial Opening (ICD-10-PCS; principal; 2020-01-06)
DX: J45.21 Mild intermittent asthma with (acute) exacerbation (principal); J06.9 Acute upper respiratory infection, unspecified; E10.9 Type 1 diabetes mellitus without complications; Z79.4 Long term (current) use of insulin
CPT/HCPCS: 99284-25